=== PATIENT | female | born 1935 | race Caucasian/White ===

== ENCOUNTER → 2016-04-28 | Outpatient (CLI) | payer BC ==
[~2016-04-28] MED LIST: ARM1 PO; ASPEC81 PO; CRS10 PO; FRS/40 PO; INSDGI SC; METO1TAB69 PO; MULT-506 PO; NVLGI SQ; SPIR50TA2 PO
[2016-04-28 09:32] LABS: BASO % 0.4 %; BASO ABS # 0.03 K/uL (0-0.2); COMPLETE YES; EOS % 2.3 %; HEMATOCRIT 40.1 % (37-47); IG% 0.1 %; LYMPH % 36.2 %; LYMPH ABS # 2.62 K/uL (1.2-3.4); MEAN CELL VOLUME 85.9 fL (80-100); MEAN CORPUSCULAR HEMOGLOBIN 28.9 pg (25-34); MEAN CORPUSCULAR HGB CONC 33.7 g/dl (32-36); MEAN PLATELET VOLUME 11.1 fL (7.4-10.4); MONO % 9.1 %; NEUT % 51.9 %; PLATELET COUNT 172 K/uL (130-400); RED BLOOD COUNT 4.67 M/uL (4.2-5.4); WHITE BLOOD COUNT 7.24 K/uL (4.8-10.8)
[2016-04-28 09:53] LABS: ESTIMATED AVERAGE GLUCOSE 194 mg/dl; HA1C FLAG Normal (Normal)
[2016-04-28 10:05] LABS: ALT/SGPT 22 U/L (12-78); BLOOD UREA NITROGEN 16 mg/dl (7-18); BUN/CREATININE RATIO 20.1 (10-20); CALCIUM 9.2 mg/dl (8.5-10.1); CARBON DIOXIDE 27 mmol/L (21-32); CHLORIDE 105 mmol/L (98-107); CHOLESTEROL 124 mg/dl (0-200); CREATININE 0.77 mg/dl (0.60-1.20); GLUCOSE 155 mg/dl (70-99); SODIUM 142 mmol/L (136-145); TRIGLYCERIDES 133 mg/dl (0-150); VERY LOW DENSITY LIPOPROT CALC 27 mg/dl
[2016-04-28 10:08] LABS: ALKALINE PHOSPHATASE 124 U/L (45-117); AST/SGOT 24 U/L (15-37); CHOLESTEROL/HDL RATIO 2.9; HDL CHOLESTEROL 43 mg/dl; LDL CHOLESTEROL CALCULATED 54 mg/dl
[2016-04-28 16:39] LABS: RATIO 18.5 mcg/mg (0-30.0)
== END | disposition home or self-care (01) ==
LOC: C.LAB1850 08:37
PROVIDERS: ATTEND Nurse Practitioner Family
DX: I10 Essential (primary) hypertension (principal); E10.9 Type 1 diabetes mellitus without complications; E78.00 Pure hypercholesterolemia, unspecified

== ENCOUNTER → 2016-10-23 | Outpatient (CLI) | payer BC ==
[2016-10-23 09:35] LABS: BASO % 0.4 %; BASO ABS # 0.03 K/uL (0-0.2); COMPLETE YES; EOS % 2.6 %; HEMATOCRIT 37.6 % (37-47); IG% 0.1 %; LYMPH % 30.2 %; LYMPH ABS # 2.35 K/uL (1.2-3.4); MEAN CELL VOLUME 80.3 fL (80-100); MEAN CORPUSCULAR HEMOGLOBIN 26.1 pg (25-34); MEAN CORPUSCULAR HGB CONC 32.4 g/dl (32-36); MEAN PLATELET VOLUME 10.3 fL (7.4-10.4); MONO % 9.3 %; NEUT % 57.4 %; PLATELET COUNT 196 K/uL (130-400); RED BLOOD COUNT 4.68 M/uL (4.2-5.4); WHITE BLOOD COUNT 7.78 K/uL (4.8-10.8)
[2016-10-23 10:08] LABS: ALT/SGPT 20 U/L (12-78); BLOOD UREA NITROGEN 19 mg/dl (7-18); BUN/CREATININE RATIO 21.2 (10-20); CALCIUM 9.9 mg/dl (8.5-10.1); CARBON DIOXIDE 26 mmol/L (21-32); CHLORIDE 106 mmol/L (98-107); CHOLESTEROL 120 mg/dl (0-200); CREATININE 0.89 mg/dl (0.60-1.20); GLUCOSE 82 mg/dl (70-99); POTASSIUM 3.5 mmol/L (3.5-5.1); SODIUM 140 mmol/L (136-145); TRIGLYCERIDES 111 mg/dl (0-150); VERY LOW DENSITY LIPOPROT CALC 22 mg/dl
[2016-10-23 10:12] LABS: ALKALINE PHOSPHATASE 124 U/L (45-117); AST/SGOT 20 U/L (15-37); CHOLESTEROL/HDL RATIO 2.9; HDL CHOLESTEROL 42 mg/dl; LDL CHOLESTEROL CALCULATED 56 mg/dl
[2016-10-23 10:24] LABS: ESTIMATED AVERAGE GLUCOSE 186 mg/dl; HA1C FLAG Normal (Normal)
== END | disposition home or self-care (01) ==
LOC: C.LAB1850 08:35
PROVIDERS: ATTEND Nurse Practitioner Family
DX: I10 Essential (primary) hypertension (principal); E10.9 Type 1 diabetes mellitus without complications; E78.00 Pure hypercholesterolemia, unspecified; I65.29 Occlusion and stenosis of unspecified carotid artery

== ENCOUNTER → 2016-12-10 | Outpatient (CLI) | payer BC ==
--- NOTE | 2016-12-11 13:58 | MAMMOGRAPHY REPORT ---
BILATERAL DIGITAL SCREENING MAMMOGRAM TOMOSYNTHESIS WITH CAD: 12/10/2016 CLINICAL HISTORY: Asymptomatic. Personal history of breast cancer. TECHNIQUE: Breast tomosynthesis in addition to standard 2D mammography was performed. Current study was also evaluated with a Computer Aided Detection (CAD) system. COMPARISON: Comparison is made to exams dated: 11/01/2015 mammogram, 02/21/2015 mammogram, 02/20/2014 m ammogram, 02/16/2013 mammogram, 02/16/2012 mammogram, and 02/11/2011 mammogram - [facility]. BREAST COMPOSITION: There are scattered areas of fibroglandular density in both breasts. FINDINGS: No suspicious masses, calcifications, or areas of architectural distortion are noted in ei ther breast. There has been no significant interval change compared to prior exams. Scattered bilater al benign-appearing calcifications are not significantly changed. There are stable postsurgical gonzales ges in the right breast from prior lumpectomy. IMPRESSION: ACR BI-RADS CATEGORY 2: BENIGN There is no mammographic evidence of malignancy. A 1 year screening mammogram is recommended. The pa tient will receive written notification of the results. Approximately 10% of breast cancers are not detected with mammography. A negative mammographic report should not delay biopsy if a clinically suggestive mass is present. Gloria Rivero M.D. /:12/10/2016 16:02:44 Utility Maintenance Worker: Radha BEVERLY(R)(M), [facility] letter sent: Normal 1/2 BI-RADS Code: ACR BI-RADS Category 2: Benign
== END | disposition home or self-care (01) ==
LOC: C.MAMM 10:32
PROVIDERS: ATTEND Nurse Practitioner Family
DX: Z12.31 Encounter for screening mammogram for malignant neoplasm of breast (principal); Z85.3 Personal history of malignant neoplasm of breast

== ENCOUNTER → 2017-01-22 | Outpatient (CLI) | payer BC ==
[~2017-01-22] MED LIST changes: +METO100T44 PO; -METO1TAB69 PO
[2017-01-22 14:20] VITALS: BP 111/62; PULSE 45; TEMP 36.7; O2SAT 94
[2017-01-22 15:02] VITALS: BP 104/62
--- NOTE | 2017-01-22 16:28 | Radiation Oncology Follow-Up ---
Radiation Oncology Follow-Up Date of Visit Jan 22, 2017. Reason For Visit Annual follow-up Radiation Completion Date finished 06-06-2010, using accelerated partial breast treatment Diagnosis (1) Breast cancer Status: Resolved Onset Date: 02/06/2010 Permanent Comment: Abnormal right breast mammogram Status post core needle biopsy revealing ductal carcinoma Status post right partial mastectomy and sentinel lymph node biopsy Stage [id number] SG receptor was positive progesterone receptor positive and HER-2/jeremie negative Status post completion of radiation therapy utilizing accelerated partial breast treatment completed 06/06/2010 received 3850 cGy Last Edited By: Janet Puente on Jan 10, 2015 16:34 Interim History She has noticed no changes to her breast. She has an area of fibrous tissue in the upper outer portion which is unchanged. There is mild tenderness at times in this area. She's had no changes of the overlying skin is noted no masses of the axilla. She denies any swelling of her arm. She is up-to-date on mammography. She had a mammogram 12/10/2016. There was no mammographic evidence of malignancy. A one-year screening mammogram was recommended. She complained to nursing that she has been having difficulty with lightheadedness. Vital signs were taken and she was noted to have a slow pulse at 44 bpm blood pressure was taken standing sitting and lying. She describes her lightheadedness is a wave that will come over her. She has not lost consciousness. She is diabetic. She has checked her blood sugars and this is not related to her blood sugar. She is also been evaluated for vertigo. Allergies Coded Allergies: Penicillins (Verified Allergy, Mild, RASH, 12/31/11) VITOR Inhibitors (Unverified Allergy, Unknown, HIVES, 12/31/11) Home Medications Scheduled Aspirin Enteric Coated (Ecotrin Or Generic *), 81 MG PO DAILY Furosemide (Lasix), 40 MG PO DAILY Insulin Aspart (Novolog), 30 UNITS SQ TID Insulin Glargine (Lantus), 32 UNITS SC BID Metoprolol Succ (Toprol Xl) (Toprol-Xl ), 100 MG PO QPM Multivitamin (Multivitamin), 1 TAB PO DAILY Rosuvastatin Calcium (Crestor *), 10 MG PO DAILY Spironolactone (Aldactone), 50 MG PO DAILY Review of Systems Gastrointestinal: GI Comments: had rectal bleeding 6 months ago, none since Oral: Symptoms: No Problems Respiratory: Symptoms: Dry Cough, SOB With Exertion Urinary: Symptoms: Incontinence, Nocturia Comments: " drips all the time , occ nocturia " Skin: Symptoms: No Problems Breast: Right Upper Arm Measurement: 35.0 Right Mid Arm Measurement: 28.0 Right Wrist Measurement: 18.0 Left Upper Arm Measurement: 35.5 Left Mid Arm Measurement: 27.0 Left Wrist Measurement: 18.5 Arm Dominence: Right Patient Cosmetic Evaluation: Excellent Staff Cosmetic Evalaluation: Excellent Physical Exam Vital Signs Date Time Temp Pulse Resp B/P (MAP) Pulse Ox O2 Delivery O2 Flow Rate FiO2 01/22/17 15:02 104/62 01/22/17 14:20 36.7 45 16 111/62 94 Pain: Side: Bilateral Patient Pain Scale: 0 - 10 Initial Pain Intensity: 0.0 Fatigue: None General Appearance: no apparent distress Eyes: normal inspection, EOMI ENT: normal ENT inspection, hearing grossly normal Neck: no adenopathy Respiratory/Chest: lungs clear, no respiratory distress, no accessory muscle use Breast: Breast examination reveals well-healed incisions of the right breast. There is fibrous tissue in the upper outer quadrant. There is slight tenderness. There is no erythema or edema. There are no skin retractions or nipple changes. Using the [place] score cosmesis she has a good outcome. Left breast showed no masses or tenderness no axillary adenopathy. Cardiovascular: no gallop, + bradycardia Abdomen: non tender, soft Extremities: no pedal edema Neurologic/Psychiatric: no motor/sensory deficits, alert, normal mood/affect Skin: warm/dry Additional Exam Notes: Blood pressure standing was 104/60. Blood pressure lying was 117/65. Laboratory Studies Test 10/23/16 08:45 White Blood Count 7.78 K/uL (4.8-10.8) Red Blood Count 4.68 M/uL (4.2-5.4) Hemoglobin 12.2 g/dL (12.0-16.0) Hematocrit 37.6 % (37-47) Mean Corpuscular Volume 80.3 fL (80-100) Mean Corpuscular Hemoglobin 26.1 pg (25-34) Mean Corpuscular Hemoglobin Concent 32.4 g/dl (32-36) Platelet Count 196 K/uL (130-400) Mean Platelet Volume 10.3 fL (7.4-10.4) Neutrophils (%) (Auto) 57.4 % Lymphocytes (%) (Auto) 30.2 % Monocytes (%) (Auto) 9.3 % Eosinophils (%) (Auto) 2.6 % Basophils (%) (Auto) 0.4 % Neutrophils # (Auto) 4.47 K/uL (1.4-6.5) Lymphocytes # (Auto) 2.35 K/uL (1.2-3.4) Monocytes # (Auto) 0.72 K/uL (0.11-0.59) Eosinophils # (Auto) 0.20 K/uL (0-0.5) Basophils # (Auto) 0.03 K/uL (0-0.2) RDW Standard Deviation 41.8 fL (36.4-46.3) RDW Coefficient of Variation 14.4 % (11.5-14.5) Immature Granulocyte % (Auto) 0.1 % Immature Granulocyte # (Auto) 0.01 K/uL (0.00-0.02) Urine Random Creatinine 130.0 mg/dl Urine Random Microalbumin 11.7 mg/L Urine Microalbumin/Creatinine Ratio 9.0 mcg/mg (0-30.0) Sodium Level 140 mmol/L (136-145) Potassium Level 3.5 mmol/L (3.5-5.1) Chloride Level 106 mmol/L (98-107) Carbon Dioxide Level 26 mmol/L (21-32) Anion Gap 8.0 mmol/L (3-11) Blood Urea Nitrogen 19 mg/dl (7-18) Creatinine 0.89 mg/dl (0.60-1.20) Estimated GFR () 70.0 Estimated GFR (Non- 60.4 BUN/Creatinine Ratio 21.2 (10-20) Random Glucose 82 mg/dl (70-99) Estimated Average Glucose 186 mg/dl Hemoglobin A1c 8.1 % (4.5-5.6) Calcium Level 9.9 mg/dl (8.5-10.1) Total Bilirubin 0.6 mg/dl (0.2-1) Aspartate Amino Transferase (AST) 20 U/L (15-37) Alanine Aminotransferase (ALT) 20 U/L (12-78) Alkaline Phosphatase 124 U/L (45-117) Total Protein 7.2 gm/dl (6.4-8.2) Albumin 3.6 gm/dl (3.4-5.0) Globulin 3.6 gm/dl (2.5-4.0) Albumin/Globulin Ratio 1.0 (0.9-2) Triglycerides Level 111 mg/dl (0-150) Cholesterol Level 120 mg/dl (0-200) HDL Cholesterol 42 mg/dl LDL Cholesterol, Calculated 56 mg/dl VLDL Cholesterol, Calculated 22 mg/dl Cholesterol/HDL Ratio 2.9 Additional Studies Patient: LUDWIG JULES [facility] Rec: [id number] Address1: [address] [place] [address] [id number] Date: 1935 Sex: F Ref Phy: Silviano Richards III, CRNP Att Phy: Silviano Richards III, CRNP Debbie Phy: Silviano Richards III, CRNP Inter Phy: Gloria Rivero MD [facility] Zip: [place] [address] SC: C.MAMM Report #: [id number] Clinical Engineer: GERARDO Diagnosis: ASYMPTOMATIC, HX OF BREAST CA Service Date: 12/10/16 MNE: [id number] Ordering Dr: Silviano Richards III, CRNP CC: Silviano Richards III, CRNP CONF: DICTATED BY: Gloria Rivero MD MAMMOGRAPHY REPORT BILATERAL DIGITAL SCREENING MAMMOGRAM TOMOSYNTHESIS WITH CAD: 12/10/2016 CLINICAL HISTORY: Asymptomatic. Personal history of breast cancer. TECHNIQUE: Breast tomosynthesis in addition to standard 2D mammography was performed. Current study was also evaluated with a Computer Aided Detection (CAD ) system. COMPARISON: Comparison is made to exams dated: 11/01/2015 mammogram, 02/21/2015 mammogram, 02/20/2014 mammogram, 02/16/2013 mammogram, 02/16/2012 mammogram, and 02/11/2011 mammogram - [facility]. BREAST COMPOSITION: There are scattered areas of fibroglandular density in both breasts. FINDINGS: No suspicious masses, calcifications, or areas of architectural distortion are noted in either breast. There has been no significant interval change compared to prior exams. Scattered bilateral benign-appearing calcifications are not significantly changed. There are stable postsurgical changes in the right breast from prior lumpectomy. IMPRESSION: ACR BI-RADS CATEGORY 2: BENIGN There is no mammographic evidence of malignancy. A 1 year screening mammogram is recommended. The patient will receive written notification of the results. Approximately 10% of breast cancers are not detected with mammography. A negative mammographic report should not delay biopsy if a clinically suggestive mass is present. Gloria Rivero M.D. ah/:12/10/2016 16:02:44 Director Home Health: Radha GARCES)(Clif), [facility] letter sent: Normal 1/2 BI-RADS Code: ACR BI-RADS Category 2: Benign Dictated by: Gloria Rivero MD Assessment & Plan Plan: Continue annual mammography. Continue regular follow-up with her primary care physician. We did call her primary care physician's office to set up an appointment for an evaluation of the bradycardia. They were able to see her this afternoon. We asked her to return to our office in 1 year. She may call if she has any questions or concerns in the interim. Total Time In Follow-Up I spent 20 minutes speaking to the patient and performing examination. I spent 15 minutes reviewing information in completing this note. Copy To Silviano Richards III, CRNP; Alexx Bean D.O.
== END | disposition home or self-care (01) ==
LOC: C.ONC 14:10
PROVIDERS: ATTEND Physician Assistant Medical
DX: Z08 Encounter for follow-up examination after completed treatment for malignant neoplasm (principal); Z92.3 Personal history of irradiation; Z85.3 Personal history of malignant neoplasm of breast

== ENCOUNTER → 2017-04-29 | Outpatient (CLI) | payer BC ==
[~2017-04-29] MED LIST changes: -ARM1 PO
[2017-04-29 12:23] LABS: HEMOGLOBIN A1C 9.3 % (4.5-5.6)
[2017-04-29 12:35] LABS: ALBUMIN 3.4 gm/dl (3.4-5.0); ALT/SGPT 21 U/L (12-78); AST/SGOT 27 U/L (15-37); BLOOD UREA NITROGEN 18 mg/dl (7-18); CALCIUM 9.6 mg/dl (8.5-10.1); CARBON DIOXIDE 31 mmol/L (21-32); CREATININE 0.87 mg/dl (0.60-1.20); GLUCOSE 215 mg/dl (70-99); SODIUM 136 mmol/L (136-145)
[2017-04-29 12:36] LABS: ALKALINE PHOSPHATASE 110 U/L (45-117); CHOLESTEROL 126 mg/dl (0-200); LDL CHOLESTEROL CALCULATED 47 mg/dl; TOTAL PROTEIN 7.2 gm/dl (6.4-8.2)
== END | disposition home or self-care (01) ==
LOC: C.LAB1850 09:52
PROVIDERS: ATTEND Nurse Practitioner Family
DX: I10 Essential (primary) hypertension (principal); E10.9 Type 1 diabetes mellitus without complications; E78.00 Pure hypercholesterolemia, unspecified; E66.9 Obesity, unspecified; I65.29 Occlusion and stenosis of unspecified carotid artery

== ENCOUNTER → 2017-08-03 | Outpatient (CLI) | payer BC ==
[2017-08-03 13:41] LABS: HEMOGLOBIN A1C 9.4 % (4.5-5.6)
[2017-08-03 13:43] LABS: BLOOD UREA NITROGEN 12 mg/dl (7-18); CALCIUM 9.4 mg/dl (8.5-10.1); CARBON DIOXIDE 26 mmol/L (21-32); CREATININE 0.88 mg/dl (0.60-1.20); GLUCOSE 206 mg/dl (70-99); POTASSIUM 3.8 mmol/L (3.5-5.1); SODIUM 134 mmol/L (136-145)
== END | disposition home or self-care (01) ==
LOC: C.LAB1850 11:28
PROVIDERS: ATTEND Nurse Practitioner Family
DX: E10.9 Type 1 diabetes mellitus without complications (principal)

== ENCOUNTER → 2017-12-11 | Outpatient (CLI) | payer BC ==
--- NOTE | 2017-12-14 13:56 | MAMMOGRAPHY REPORT ---
BILATERAL DIGITAL SCREENING MAMMOGRAM TOMOSYNTHESIS WITH CAD: 12/11/2017 CLINICAL HISTORY: Routine screening. Patient has no complaints. TECHNIQUE: Breast tomosynthesis in addition to standard 2D mammography was performed. Current study w as also evaluated with a Computer Aided Detection (CAD) system. COMPARISON: Comparison is made to exams dated: 12/10/2016 mammogram, 11/01/2015 mammogram, 02/21/2015 m ammogram, 02/20/2014 mammogram, 02/16/2013 mammogram, and 02/16/2012 mammogram - [facility]. BREAST COMPOSITION: There are scattered areas of fibroglandular density in both breasts. FINDINGS: No suspicious masses, calcifications, or areas of architectural distortion are noted in either breast . There has been no significant interval change compared to prior exams. Scattered bilateral benign- appearing calcifications are not significantly changed. There are stable postsurgical changes in the right breast from prior lumpectomy. IMPRESSION: ACR BI-RADS CATEGORY 2: BENIGN There is no mammographic evidence of malignancy. A 1 year screening mammogram is recommended.( 019) The patient will receive written notification of the results. Some breast cancers are not detected with mammography. A negative mammographic report should not sloan y biopsy if a clinically suggestive mass is present. Gloria Rivero M.D. /:12/12/2017 10:39:25 Flare Stitcher: RT Steffen(Moshe)(M), [facility] letter sent: Normal 1/2 BI-RADS Code: ACR BI-RADS Category 2: Benign
== END | disposition home or self-care (01) ==
LOC: C.MAMM 10:45
PROVIDERS: ATTEND Nurse Practitioner Family
DX: Z12.31 Encounter for screening mammogram for malignant neoplasm of breast (principal)

== ENCOUNTER 2018-04-21 19:45 | Inpatient (IN) ==
[2018-04-21] MEDS ORDERED: fentaNYL citrate 100 MCG/2 ML VIAL IV ONE (21:08)
[2018-04-21] MEDS ORDERED: fentaNYL citrate 100 MCG/2 ML VIAL IV PRN (21:08)
[2018-04-21 21:26] LABS: Hematocrit (blood only) 40.7 % (37-47); Hemoglobin 13.4 g/dL (12.0-16.0); Mean Corpuscular Hgb Conc 32.9 g/dL (32-36); Mean Corpuscular Volume 80.9 fL (80-100); Platelet Count 176 K/uL (130-400); RDW Coefficient of Variation 19.6 % (11.5-14.5); Red Blood Count 5.03 M/uL (4.2-5.4); White Blood Count 27.52 K/uL (4.8-10.8)
[2018-04-21 21:32] LABS: iSTAT Hemoglobin 13.6 g/dl (12.0-16.0); iSTAT Ionized Calcium 1.07 mmol/l (1.12-1.32)
--- NOTE | 2018-04-21 21:32 | XRay Report ---
XR chest 1V portable HISTORY: 83 years-old Female fever acute fever COMPARISON: Chest radiograph 03/18/2018 TECHNIQUE: Portable AP view of the chest FINDINGS: Cardiac silhouette is enlarged, unchanged. Left subclavian pacer is again noted within the midportion of the catheter looping superiorly in the region of the left internal jugular vein. Distal portion o f the catheter is seen within the region of the mid SVC. There is no pneumothorax. Blunting of the costophrenic angles redemonstrated suggesting scarring/atel ectasis with trace effusions not excluded. Mild chronic interstitial coarsening without overt pulmona ry edema. Degenerative changes of the shoulders and spine. Surgical clips project over the lateral ri ght breast. IMPRESSION: Cardiomegaly without acute process. The above report was generated using voice recognition software. It may contain grammatical, syntax o r spelling errors. Electronically signed by: Gaston Montejo M.D. 04/21/2018 9:31 PM
[2018-04-21 21:40] LABS: INR 1.3 (0.9-1.1); Partial Thromboplastin Ratio 1.1; Partial Thromboplastin Time 29.1 Seconds (21.0-31.0); Prothrombin Time 13.2 Seconds (9.0-12.0)
[2018-04-21 21:43] LABS: Basophils # (auto) 0.03 K/uL (0-0.2); Basophils % (auto) 0.1 %; Immature Granulocytes # (auto) 0.16 K/uL (0.00-0.02); Immature Granulocytes % (auto) 0.6 %; Lymphocytes # (auto) 1.97 K/uL (1.2-3.4); Lymphocytes % (auto) 7.2 %; Monocytes # (auto) 0.94 K/uL (0.11-0.59); Monocytes % (auto) 3.4 %; Neutrophils # (auto) 24.42 K/uL (1.4-6.5); Neutrophils % (auto) 88.7 %
[2018-04-21 21:46] LABS: Albumin Level 1.9 gm/dl (3.4-5.0); BUN Creatinine Ratio 17.7 (10-20); Bilirubin Direct 0.5 mg/dl (0-0.2); Calcium 8.4 mg/dl (8.5-10.1); Est GFR (African American) 84.8; Est GFR (Non-African American) 73.2; Magnesium 1.5 mg/dl (1.8-2.4); Potassium 2.9 mmol/L (3.5-5.1)
[2018-04-21] MEDS ORDERED: DAPTOmycin 500 MG in SYRINGE 0 ML IV STA (21:49)
[2018-04-21] MEDS ORDERED: AZTREONAM 2,000 MG in DEXTROSE 5% 100 ML IV STA (21:49)
--- NOTE | 2018-04-21 21:52 | CT Scan Report ---
ABDOMEN AND PELVIS CT WITHOUT CONTRAST CT DOSE: 609.98 mGy.cm HISTORY: Acute generalized abdominal pain with fever. History of metastatic colon cancer. abdominal pain, vomiting, fevers, meta colon ca TECHNIQUE: Multiaxial CT images of the abdomen and pelvis were performed without contrast. A dose lo wering technique was utilized adhering to the principles of ALARA. COMPARISON STUDY: CT abdomen and pelvis 03/30/2018 and 01/21/2018, PET CT 02/08/2018 FINDINGS: Partially imaged groundglass and consolidative opacities of the right lower lobe are noted, suspicio us for pneumonitis. Trace bilateral pleural effusions. Linear segmental consolidative and groundglass opacities of the left lung base suggest atelectasis/scarring. No pneumatosis or pneumoperitoneum. Im aged inferior cardiac chambers are mildly enlarged. Coarse mitral and aortic annular calcifications w ith coronary arterial calcifications are noted. No pericardial effusion. Prior cholecystectomy. Innumerable hepatic metastatic lesions are redemonstrated, sensitivity of whic h is limited without the use of IV contrast. A dominant mass of the inferior right hepatic lobe measu res 7.2 cm. Trace abdominopelvic ascites, new from comparison. Spleen and right adrenal gland are unr emarkable. Mild thickening of the left adrenal gland. Prior cholecystectomy. Moderate to severe gener alized pancreatic atrophy. Mild nonspecific bilateral perinephric stranding. No ureteral calculi or obstructive uropathy. Prior hysterectomy. Extensive calcification of the aorta without aneurysm. Scattered mildly prominent retro peritoneal lymph nodes again seen. Fluid-filled distal esophagus. Mild wall thickening of the distal esophagus with small sliding-type hiatal hernia. No small bowel obstruction. Colonic diverticulosis. Moderate wall thickening throughout the sigmoid colon with pericolonic inflammation. Additionally, th ere is thickening of the adjacent peritoneum with a fluid and air-filled tract extending towards the vaginal cuff (for example best seen on images 329 through 351 of series 3). Air and debris noted with in the vaginal canal. No drainable fluid collection. Large cecal mass with ill-defined margins adjace nt lul and peritoneal metastasis redemonstrated. Fluid-filled terminal ileum with mild wall thicken ing. Scattered areas of omental/peritoneal nodularity are seen, for example image 161 series 3 about the lateral left midabdomen equivocal for metastasis. Lul metastasis on image 109 series 3 measures 3.5 x 2.5 cm, unchanged Mild generalized body wall edema. Multilevel spondylitic spurring with facet arthrosis and discogenic degeneration throughout the spine. No definite suspicious lytic or blastic bony lesions to suggest o sseous metastasis. Indeterminate ill-defined 9 mm lucent lesion of the posterior aspects T11 vertebra l body is unchanged from comparison. IMPRESSION: 1. Large ill-defined soft tissue mass of the cecum compatible with patient's known primary colorectal carcinoma redemonstrated with adjacent lul and peritoneal metastasis. 2. Diffuse hepatic metastasis with trace abdominopelvic ascites. 3. Colonic diverticulosis with sigmoid wall thickening and adjacent inflammation is compatible with a cute sigmoid diverticulitis. Air and fluid-filled tract extending towards the vagina suggests associa jorge colovaginal fistula with air and debris within the vaginal canal. 4. No bowel obstruction. 5. Trace bilateral pleural effusions with opacities of the right lung base suggestive of pneumonitis. 6. Additional findings as above. Electronically signed by: Gaston Montejo M.D. 04/21/2018 9:50 PM
[2018-04-21] MEDS ORDERED: SODIUM CHLORIDE 0.9% 1000ML 1,000 ML IV ONE (21:57)
[2018-04-21 22:06] LABS: Bilirubin,Total 1.1 mg/dl (0.2-1); Total Protein 5.9 gm/dl (6.4-8.2); Troponin I 1.56 ng/ml (0-0.045)
[2018-04-21] MEDS ORDERED: ACETAMINOPHEN 500 MG TAB PO STA (22:22)
[2018-04-21] MEDS ORDERED: AMIODARONE IV BOLUS / DRIP IV STA (22:25)
[2018-04-21] MEDS ORDERED: AMIODARONE / D5W 150 MG/100 ML BAG IV STA (22:25)
[2018-04-21] MEDS ORDERED: AMIODARONE / D5W 360 MG/200 ML BAG IV SCH (22:30)
--- NOTE | 2018-04-21 23:45 | Emergency Department Note ---
Entered by Katie Gupta acting as a scribe for Ian Zamudio MD ED Provider Note Name: Brittney Thurman Age: 83 Arrives Via: EMS Informant: Patient, patient's family CC: Abdominal pain HPI: The patient is an 83 year old female who presents to the Emergency Room with complaints of a persistent abdominal pain that began a few days ago. The patient reports that the pain is located on her right lower quadrant. She denies any chest pain, shortness of breath, dizziness, lightheadedness or dysuria, but notes she has had mucus-like bowel movements. Per family, the patient had a port placed a month ago to receive chemotherapy for her history of stage 4 colon cancer. The family states that the patient's cancer has metastasized to her liver and that she has only received one mass chemotherapy session. The patient notes that she was unable to eat following the treatment and was at this hospital receiving nutrition via IV. She reports that she has been in [facility] since being discharged. Per family, the patient has a history of a-fib as well as a cholecystectomy but deny a history of kidney stones or kidney failure. The patient sates that she was given morphine prior to arrival and denies any episode of fever before today. Patient received Morphine PO prior to arrival. Movement makes worse. Rest/not moving makes better. ROS: See above HPI for pertinent positives & negatives. A total of 10 systems reviewed and were otherwise negative. Past Medical History: See below. Past Surgical History: See below. Family History: See below. Social History: See below. Home Medications: See below. Allergies: Penicillins, VITOR inhibitors. Physical: Vitals: BP: 117/67 P: 104 R: 20 T: 101.7 O2: 96 Exam: GENERAL: Patient is uncomfortable appearing, moderate distress, chronically unwell appearing. EYES: No scleral icterus, unremarkable pupils. ENT: Mucous membranes moist, no nasal congestion. NECK: No masses appreciated, no meningismus, trachea is midline. RESPIRATORY: No dyspnea. Clear to auscultation and equal bilaterally. No wheeze , no rhonchi. CARDIOVASCULAR: Tachycardic. No murmurs, rubs, gallops appreciated. GASTROINTESTINAL: Abdomen soft, diffuse abdominal tenderness to palpation, worse over the right lower quadrant, no peritonitis. Bowel sounds positive. No masses appreciated. BACK: No midline tenderness, no CVA tenderness EXTREMITIES: Normal motion all extremities, no cyanosis, no edema. NEUROLOGIC: Alert and oriented, no acute motor or sensory deficits, no focal weakness, cranial nerves grossly intact. SKIN: No rash, no jaundice, no diaphoresis. ED Course: Prior Medical Record, Triage/Nursing Notes, Medications, Allergies reviewed by Me Vital Signs: reviewed and remarkable for febrile. Labs: Reviewed and remarkable for elevated wbc, low K, low mag, low albumen, + trop Interventions: Port accessed, 1 L NSS bolus, Fentanyl 25mcg IV, Aztreonam 2G IV , Daptomycin 500mg IV, Amiodarone 150mg & gtt. Imaging: See below. EKG: See below. Reassessments/Times: 2154: The patient states her abdominal pain is better as long as she doesn't move. 2237: I had an extensive discussion with patient and the patient's family and they all agreed on DNR, however, they do want aggressive antibiotics. Consults: 2249: I reviewed the patient's case with Dr. Gil - [facility] Hospitalist. He will evaluate the patient for further management. Blood pressure: Normal, no referral indicated Disposition: See below. Differential diagnosis includes: diverticulitis, appendicitis,perforated viscus , pancreatitis, cholecystitis, UTI, sepsis, amongst other pathologies. Medical Decision Making: Pleasant 83 yr old female with low abdominal pain, fevers and not feeling well. Associated mucous diarrhea and admits 2 weeks of mucous draining from vagina. Pain controlled on arrival. IV fluids initiated. LA and BP OK thus I do not feel this is septic shock, however with infection, wbc 27 she clearly is septic. Will hold on full 30ml/kg IV fluids to avoid putting her in to respiratory failure. 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 She is recent chemo patient, very malnurished and has stage 4 metastatic colon CA. She was treated aggressively with IV fluids, ABx. Noted to be going in to runs of V-Tach of a few seconds that occurred several times. Likely septic causing cardiac instability and thus will start Amio. She tolerated this well. Suspect Trop is more due to sepsis though could have something to do with her vtach as well. We had several very long discussion with myself, family and patient. They are all in agreeing that patient does not want surgery, does not want intubation , and would not want CPR. She was watched very closely over the time she was in ED with many repeat evaluations. BP remained stable thoughout and pain was kept under control with fentanyl. Impression: See below. Critical Care Time: I have personally spent greater than 90 minutes of critical care time in the direct management of this patient. Sepsis with WBC 27 requiring aggressive management, cardiac instability with V-Tach requiring Amiodarone, and extensive discussions on DNR status. This was a life/limb threatening event. This includes time spent evaluating patient, direct bedside care, chart review, placing orders, interpretation of diagnostic studies, discussion with consultants, patient, and family members, as well as other required patient management activities. This 90 minutes is in excess of all separately billable procedures. Ian Zamudio MD The scribe's documentation has been prepared under my direction and personally reviewed by me in its entirety. I confirm that the note above accurately reflects all work, treatment, procedures, and medical decision making performed by me. Impression & Plan Diverticulitis large intestine, Fistula of vagina to large intestine, Sepsis, V tach, Elevated troponin Past Med/Surg History Medical History History of breast cancer (Chronic) RIGHT. (+)RADIATION (2009) Hyperlipidemia (Chronic) Diabetes mellitus (Chronic) TYPE 2 IDDM HTN (hypertension) (Chronic) Cancer H/O BREAST CANCER 2010 CURRENT COLON CANCER WITH METS TO LIVER. Mitral regurgitation Mitral stenosis Chronic diastolic CHF (congestive heart failure) Esophageal dysmotility Aortic stenosis Paroxysmal atrial fibrillation Edema Colon cancer metastasized to liver Surgical History Hx of hysterectomy (Chronic) MAGALYS WITH BSO History of dilation and curettage (Chronic) Hx of cholecystectomy (Chronic) History of lumpectomy of right breast (Chronic) History of cataract surgery BILATERAL Encounter for care related to vascular access port access port placed 03/18/2018. fentanyl/propofol without issue. Family History Aunt Colon cancer Other No significant family history Social History Current Living Situation: Spouse Feels Safe at Home: Yes Smoking Status: Unknown if ever smoked Hx Alcohol Use: No Hx Substance Use: No Beliefs That Will Affect Care: None Preferred Language: Romansh Results & Data Vital Signs Vital Signs - 24 hr 04/21/18 19:43 04/21/18 20:57 04/21/18 21:00 Temperature 38.7 C H Temperature Source Rectal Sepsis Recent Fever Within 48 Hours Yes Sepsis Action Taken by Nursing No Action Required Pulse Rate 104 H Pulse Rate [Apical] 107 H 105 H Pulse Rhythm [Apical] Pulse Strength [Apical] Respiratory Rate 20 18 18 Respiratory Effort / Characteristics Non-Labored Spontaneous Non-Labored Spontaneous Non-Labored Spontaneous Respiratory Depth Normal Normal Normal Respiratory Pattern Regular Regular Regular Blood Pressure 117/67 Blood Pressure [Left Arm] 129/71 135/75 Blood Pressure Mean 83 Blood Pressure Mean [Left Arm] 90 95 Blood Pressure Position Lying Blood Pressure Position [Left Arm] Lying Pulse Oximetry 96 95 93 Oxygen Delivery Method Room Air Room Air Room Air Oxygen Flow Rate 04/21/18 21:15 04/21/18 21:30 04/21/18 22:00 Temperature Temperature Source Sepsis Recent Fever Within 48 Hours Sepsis Action Taken by Nursing Pulse Rate Pulse Rate [Apical] 116 H 109 H Pulse Rhythm [Apical] Pulse Strength [Apical] Respiratory Rate 18 18 Respiratory Effort / Characteristics Non-Labored Spontaneous Non-Labored Spontaneous Respiratory Depth Normal Normal Respiratory Pattern Regular Regular Blood Pressure Blood Pressure [Left Arm] 100/69 130/74 Blood Pressure Mean Blood Pressure Mean [Left Arm] 79 92 Blood Pressure Position Blood Pressure Position [Left Arm] Lying Lying Pulse Oximetry 94 94 87 L Oxygen Delivery Method Room Air Room Air Room Air Oxygen Flow Rate 0 04/21/18 22:29 Temperature Temperature Source Sepsis Recent Fever Within 48 Hours Sepsis Action Taken by Nursing Pulse Rate Pulse Rate [Apical] 99 H Pulse Rhythm [Apical] Regular Pulse Strength [Apical] Normal Respiratory Rate 16 Respiratory Effort / Characteristics Non-Labored Spontaneous Respiratory Depth Normal Respiratory Pattern Regular Blood Pressure Blood Pressure [Left Arm] 121/74 Blood Pressure Mean Blood Pressure Mean [Left Arm] 89 Blood Pressure Position Blood Pressure Position [Left Arm] Lying Pulse Oximetry 98 Oxygen Delivery Method Nasal Cannula Oxygen Flow Rate 2 Home Medications Current Medication List: was personally reviewed by me Laboratory Data Attestation: I reviewed the patient's lab results. Result diagrams: 04/21/18 21:00 04/21/18 21:00 Lab Results 01/06/0804/21/18 04/21/18 Range/Units 21:00 21:00 21:00 WBC 27.52 H (4.8-10.8) K/uL RBC 5.03 (4.2-5.4) M/uL Hgb 13.4 (12.0-16.0) g/dL POC Hgb (12.0-16.0) g/dl Hct 40.7 (37-47) % POC Hct (37-47) % MCV 80.9 (80-100) fL MCH 26.6 (25-34) pg MCHC 32.9 (32-36) g/dL RDW Std Deviation 54.0 H (36.4-46.3) fL RDW Coeff of Bryanna 19.6 H (11.5-14.5) % Plt Count 176 (130-400) K/uL MPV 10.0 (7.4-10.4) fL Immature Gran % (Auto) 0.6 % Neut % (Auto) 88.7 % Lymph % (Auto) 7.2 % [place] % (Auto) 3.4 % Eos % (Auto) 0.0 % Baso % (Auto) 0.1 % Immature Gran # (Auto) 0.16 H (0.00-0.02) K/uL Neut # (Auto) 24.42 H (1.4-6.5) K/uL Lymph # (Auto) 1.97 (1.2-3.4) K/uL [place] # (Auto) 0.94 H (0.11-0.59) K/uL Eos # (Auto) 0.00 (0-0.5) K/uL Baso # (Auto) 0.03 (0-0.2) K/uL PT 13.2 H (9.0-12.0) Seconds INR 1.3 H (0.9-1.1) APTT 29.1 (21.0-31.0) Seconds PTT Ratio 1.1 POC Sodium (135-144) mEq/L Sodium 135 L (136-145) mmol/L POC Potassium (3.3-5.0) mEq/L Potassium 2.9 L (3.5-5.1) mmol/L POC Chloride (101-112) mEq/L Chloride 97 L (98-107) mmol/L Carbon Dioxide 24 (21-32) mmol/L POC Total CO2 (24-31) mEq/l Anion Gap 14.0 H (3-11) POC Anion Gap (16-25) mmol/L POC BUN (7-18) mg/dl BUN 13 (7-18) mg/dl Creatinine 0.75 (0.6-1.2) mg/dl POC Creatinine (0.6-1.3) mg/dl Est Cr Clr Drug Dosing 61.0 ml/min Est GFR ( Amer) 84.8 Est GFR (Non-Af Amer) 73.2 BUN/Creatinine Ratio 17.7 (10-20) Glucose 238 H (70-99) mg/dl POC Glucose (other) (70-99) mg/dl POC Lactic Acid Nate (0.90-1.70) mmol/L Calcium 8.4 L (8.5-10.1) mg/dl POC Ioniz Calcium Giovanni (1.12-1.32) mmol/l Magnesium 1.5 L (1.8-2.4) mg/dl Total Bilirubin 1.1 H (0.2-1) mg/dl Direct Bilirubin 0.5 H (0-0.2) mg/dl AST 73 H (15-37) U/L ALT 46 (12-78) U/L Alkaline Phosphatase 253 H (45-117) U/L Troponin I 1.560 H* (0-0.045) ng/ml Total Protein 5.9 L (6.4-8.2) gm/dl Albumin 1.9 L (3.4-5.0) gm/dl Lipase 40 L (73-393) U/L TSH 2.300 (0.300-4.500) uIu/ml 04/21/18 04/21/18 Range/Units 21:15 21:15 WBC (4.8-10.8) K/uL RBC (4.2-5.4) M/uL Hgb (12.0-16.0) g/dL POC Hgb 13.6 (12.0-16.0) g/dl Hct (37-47) % POC Hct 40 (37-47) % MCV (80-100) fL MCH (25-34) pg MCHC (32-36) g/dL RDW Std Deviation (36.4-46.3) fL RDW Coeff of Bryanna (11.5-14.5) % Plt Count (130-400) K/uL MPV (7.4-10.4) fL Immature Gran % (Auto) % Neut % (Auto) % Lymph % (Auto) % [place] % (Auto) % Eos % (Auto) % Baso % (Auto) % Immature Gran # (Auto) (0.00-0.02) K/uL Neut # (Auto) (1.4-6.5) K/uL Lymph # (Auto) (1.2-3.4) K/uL [place] # (Auto) (0.11-0.59) K/uL Eos # (Auto) (0-0.5) K/uL Baso # (Auto) (0-0.2) K/uL PT (9.0-12.0) Seconds INR (0.9-1.1) APTT (21.0-31.0) Seconds PTT Ratio POC Sodium 136 (135-144) mEq/L Sodium (136-145) mmol/L POC Potassium 2.9 L (3.3-5.0) mEq/L Potassium (3.5-5.1) mmol/L POC Chloride 95 L (101-112) mEq/L Chloride (98-107) mmol/L Carbon Dioxide (21-32) mmol/L POC Total CO2 27 (24-31) mEq/l Anion Gap (3-11) POC Anion Gap 19.0 (16-25) mmol/L POC BUN 13 (7-18) mg/dl BUN (7-18) mg/dl Creatinine (0.6-1.2) mg/dl POC Creatinine 0.6 (0.6-1.3) mg/dl Est Cr Clr Drug Dosing ml/min Est GFR ( Amer) Est GFR (Non-Af Amer) BUN/Creatinine Ratio (10-20) Glucose (70-99) mg/dl POC Glucose (other) 251 H (70-99) mg/dl POC Lactic Acid Nate 1.97 H (0.90-1.70) mmol/L Calcium (8.5-10.1) mg/dl POC Ioniz Calcium Giovanni 1.07 L (1.12-1.32) mmol/l Magnesium (1.8-2.4) mg/dl Total Bilirubin (0.2-1) mg/dl Direct Bilirubin (0-0.2) mg/dl AST (15-37) U/L ALT (12-78) U/L Alkaline Phosphatase (45-117) U/L Troponin I (0-0.045) ng/ml Total Protein (6.4-8.2) gm/dl Albumin (3.4-5.0) gm/dl Lipase (73-393) U/L TSH (0.300-4.500) uIu/ml Administered Medications Fentanyl Citrate (Fentanyl Citrate) 50 mcg IV Q15M PRN PRN Reason: Pain Stop: 05/05/18 21:07 Last Admin: 04/21/18 23:07 Dose: 50 mcg Amiodarone HCl/Dextrose (Nexterone / D5w) 360 mg in 200 mls @ 33.333 mls/hr IV .Q6H VERÓNICA Stop: 04/22/18 04:29 Last Admin: 04/21/18 22:59 Dose: 1 mg/min, 33.3 mls/hr Discontinued Medications Acetaminophen (Tylenol) 1,000 mg PO NOW STA Stop: 04/21/18 22:23 Last Admin: 04/21/18 22:45 Dose: 1,000 mg Amiodarone HCl (Cordarone Iv Bolus / Drip) 1 ea IV NOW STA; Protocol Stop: 04/21/18 22:26 Last Admin: 04/21/18 23:15 Dose: Not Given Fentanyl Citrate (Fentanyl Citrate) 25 mcg IV NOW ONE Stop: 04/21/18 21:09 Last Admin: 04/21/18 21:21 Dose: 25 mcg Aztreonam 2,000 mg/ Dextrose 120 mls @ 100 mls/hr IV NOW STA Stop: 04/21/18 23:00 Last Infusion: 04/21/18 22:41 Dose: 0 mls/hr Admin: 04/21/18 22:31 Dose: 100 mls/hr Daptomycin 500 mg/ Syringe 10 mls @ 5 mls/min IV NOW STA Stop: 04/21/18 21:50 Last Admin: 04/21/18 22:27 Dose: 5 mls/min Sodium Chloride (Nss 1000ml) 1,000 mls @ 999 mls/hr IV .Q1H1M ONE Stop: 04/21/18 22:57 Last Admin: 04/21/18 22:17 Dose: 999 mls/hr Amiodarone HCl/Dextrose (Nexterone / D5w) 150 mg in 100 mls @ 600 mls/hr IV ONE STA Stop: 04/21/18 22:34 Last Infusion: 04/21/18 22:56 Dose: 0 mls/hr Admin: 04/21/18 22:45 Dose: 600 mls/hr Imaging Data Radiologist's Impression: Radiology results as stated below per my review and the radiologist's interpretation: ABDOMEN AND PELVIS CT WITHOUT CONTRAST CT DOSE: 609.98 mGy.cm HISTORY: Acute generalized abdominal pain with fever. History of metastatic colon cancer. abdominal pain, vomiting, fevers, meta colon ca TECHNIQUE: Multiaxial CT images of the abdomen and pelvis were performed without contrast. A dose lowering technique was utilized adhering to the principles of ALARA. COMPARISON STUDY: CT abdomen and pelvis 03/30/2018 and 01/21/2018, PET CT 2017 FINDINGS: Partially imaged groundglass and consolidative opacities of the right lower lobe are noted, suspicious for pneumonitis. Trace bilateral pleural effusions. Linear segmental consolidative and groundglass opacities of the left lung base suggest atelectasis/scarring. No pneumatosis or pneumoperitoneum. Imaged inferior cardiac chambers are mildly enlarged. Coarse mitral and aortic annular calcifications with coronary arterial calcifications are noted. No pericardial effusion. Prior cholecystectomy. Innumerable hepatic metastatic lesions are redemonstrated , sensitivity of which is limited without the use of IV contrast. A dominant mass of the inferior right hepatic lobe measures 7.2 cm. Trace abdominopelvic ascites, new from comparison. Spleen and right adrenal gland are unremarkable. Mild thickening of the left adrenal gland. Prior cholecystectomy. Moderate to severe generalized pancreatic atrophy. Mild nonspecific bilateral perinephric stranding. No ureteral calculi or obstructive uropathy. Prior hysterectomy. Extensive calcification of the aorta without aneurysm. Scattered mildly prominent retroperitoneal lymph nodes again seen. Fluid-filled distal esophagus. Mild wall thickening of the distal esophagus with small sliding-type hiatal hernia. No small bowel obstruction. Colonic diverticulosis. Moderate wall thickening throughout the sigmoid colon with pericolonic inflammation. Additionally, there is thickening of the adjacent peritoneum with a fluid and air-filled tract extending towards the vaginal cuff (for example best seen on images 329 through 351 of series 3). Air and debris noted within the vaginal canal. No drainable fluid collection. Large cecal mass with ill-defined margins adjacent lul and peritoneal metastasis redemonstrated. Fluid-filled terminal ileum with mild wall thickening. Scattered areas of omental/peritoneal nodularity are seen, for example image 161 series 3 about the lateral left midabdomen equivocal for metastasis. Lul metastasis on image 109 series 3 measures 3.5 x 2.5 cm, unchanged Mild generalized body wall edema. Multilevel spondylitic spurring with facet arthrosis and discogenic degeneration throughout the spine. No definite suspicious lytic or blastic bony lesions to suggest osseous metastasis. Indeterminate ill-defined 9 mm lucent lesion of the posterior aspects T11 vertebral body is unchanged from comparison. IMPRESSION: 1. Large ill-defined soft tissue mass of the cecum compatible with patient's known primary colorectal carcinoma redemonstrated with adjacent lul and peritoneal metastasis. 2. Diffuse hepatic metastasis with trace abdominopelvic ascites. 3. Colonic diverticulosis with sigmoid wall thickening and adjacent inflammation is compatible with acute sigmoid diverticulitis. Air and fluid- filled tract extending towards the vagina suggests associated colovaginal fistula with air and debris within the vaginal canal. 4. No bowel obstruction. 5. Trace bilateral pleural effusions with opacities of the right lung base suggestive of pneumonitis. 6. Additional findings as above. Electronically signed by: Gaston Montejo M.D. 04/21/2018 9:50 PM XR chest 1V portable HISTORY: 83 years-old Female fever acute fever COMPARISON: Chest radiograph 03/18/2018 TECHNIQUE: Portable AP view of the chest FINDINGS: Cardiac silhouette is enlarged, unchanged. Left subclavian pacer is again noted within the midportion of the catheter looping superiorly in the region of the left internal jugular vein. Distal portion of the catheter is seen within the region of the mid SVC. There is no pneumothorax. Blunting of the costophrenic angles redemonstrated suggesting scarring/atelectasis with trace effusions not excluded. Mild chronic interstitial coarsening without overt pulmonary edema. Degenerative changes of the shoulders and spine. Surgical clips project over the lateral right breast. IMPRESSION: Cardiomegaly without acute process. The above report was generated using voice recognition software. It may contain grammatical, syntax or spelling errors. Electronically signed by: Gaston Montejo M.D. 04/21/2018 9:31 PM ECG Data Attestation: I personally reviewed and interpreted this ECG as follows: Indication: tachycardia Rate (beats per minute): 104 Rhythm: atrial fibrillation Findings: + other (RVR, QTC of 391); no acute ischemic change Blood Pressure Blood Pressure Findings: Normal blood pressure Blood Pressure Disposition: further management by hospitalist Discharge Plan Visit Data Chief Complaint: Abdominal Pain Stated Complaint: AB PAIN ED Provider: Ian Zamudio Discharge Problem: Diverticulitis large intestine, Fistula of vagina to large intestine, Sepsis, V tach, Elevated troponin Patient Disposition: Being Evaluated by Hospitalist Forms Stand Alone Forms: [facility] Prescriptions Prescriptions: No Action furosemide [Lasix] 40 mg Tablet 40 mg PO QAM RF: 0 aspirin [Aspir-81] 81 mg Tablet,Delayed Release (Dr/Ec) 81 mg PO QAM RF: 0 spironolactone 50 mg Tablet 50 mg PO DAILY RF: 0 insulin aspart U-100 [Novolog Flexpen U-100 Insulin] 100 unit/mL Insulin Pen SUBCUT AC RF: 0 apixaban [Eliquis] 5 mg Tablet 5 mg PO BID Qty: 60 RF: 0 acetaminophen 325 mg Tablet 650 mg PO Q6H MDD 3gm/24hr PRN (Reason: Pain, Moderate) RF: 0 baclofen 10 mg tablet 10 mg PO AMHS RF: 0 cwaxdgdl-kad-SW-lycopen-lutein [Centrum Silver] 0.4-300-250 mg-mcg-mcg Tablet 1 tab PO DAILY RF: 0 omeprazole 40 mg Capsule,Delayed Release(Dr/Ec) 40 mg PO DAILY RF: 0 metoprolol tartrate 25 mg tablet 25 mg PO AMHS RF: 0 morphine concentrate 100 mg/5 mL (20 mg/mL) Solution 10 mg PO Q6H PRN (Reason: Pain, Severe) RF: 0 Referrals Referrals: Silviano Richards III, CRNP [Primary Care Provider] - The scribe's documentation has been prepared under my direction and personally reviewed by me in its entirety. I confirm that the note above accurately reflects all work, treatment, procedures, and medical decision making performed by me.
--- NOTE | 2018-04-22 00:09 | History & Physical Report ---
Date of Service April 22, 2018 Assessment & Plan (1) Diverticulitis large intestine: 83-year-old female was admitted on 21 April 2018 for sepsis and V. tach. Diverticulitis and Sepsis: Febrile, tachycardic, WBC 27, but no hypotension. POC lactate 1.97. Source is likely diverticulitis. Patient has known history of metastatic colorectal cancer to liver. See recent discharge summary on Dec. Brief review of notes mentions oncology says she cannot tolerate further chemotherapy. - ED started patient on aztreonam and daptomycin. - Blood cultures pending. - Pain management with morphine. 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 Hypoxia: SpO2 down to 87% on room air. Quickly improved with 2 L nasal cannula oxygen. Portable chest x-ray shows no acute process. She denies any difficulty breathing or chest symptoms. - Monitor for now. Vtach: While in ED, noted brief couple seconds runs of asymptomatic V tach. Has since returned to an irregularly irregular sinus rhythm. - ED started patient on amio drip. Hypokalemia: Admit K 2.9. Will replace and recheck in the morning. Hypomagnesemia: Admit 1.5. Will replace and recheck in the morning. Elevated troponin: Admit TnI 1.56. No reports of chest pain. Already on anticoagulation. - We will trend troponins. Ongoing medical issues: - Esophageal dysmotility, Schatzki's ring, duodenitis: Patient underwent a video swallow on last admission. Was placed on baclofen 10 mg p.o. twice daily. Continue here. - Hypertension: At home is on metoprolol 25 mg twice daily and spironolactone 50 mg daily. Continue here. - Hyperlipidemia: Not on any home meds for same. - Diabetes: Per patient, is on lantus 23 units and novolog sliding scale. Will place glycemic consult. - Paroxysmal A. fib: At home is on apixaban. Continue here. - Chronic diastolic CHF and edema: See echo on [id number], EF 55-60%. At home is on Lasix 40 mg every morning. Continue here. - Thrombocytopenia: Prior history of the same. Admit platelet count 176. - History of breast cancer in 2009. - Severe protein calorie malnutrition. - Aortic (severe) and mitral stenosis. Code status: After discussion with family by myself and ED provider, no CPR, no intubation, no pressors, but they do approve IV fluids and antibiotics. Diet: DM, cardiac, bite-sized. DVT prophy: On home eliquis. PT/OT: Ordered. Disbo:Admit to PCU/telemetry. 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: (4) V tach: (5) Hypoxia: (6) Hypokalemia: (7) Hypomagnesemia: (8) Elevated troponin: (9) Esophageal dysmotility: (10) Schatzki's ring: (11) Duodenitis: (12) Hypertension: (13) Hyperlipidemia: (14) Diabetes: (15) Colon cancer metastasized to liver: (16) Paroxysmal atrial fibrillation: (17) Chronic diastolic CHF (congestive heart failure): (18) Thrombocytopenia: (19) Breast cancer: (20) Severe protein-calorie malnutrition: (21) Aortic stenosis: (22) Mitral stenosis: History of Present Illness Primary Care Provider: Silviano Richards III, KRYSTAL 83-year-old female presents as a transfer from [facility] for progressively worsening right lower quadrant abdominal pain throughout today ( ). She also noticed some nausea, vomiting of �a little bit� of blood, and ongoing mucousy bowel movements. She says the bowel movements have been like this since her hospital discharge on . She says she had a fever over [facility] as well. Here in the ED, patient says that her abdominal pain is improved with pain medication. She denies any present chest pain, shortness of breath, acute urinary symptoms, or other acute concerns. Past medical history includes breast cancer, hyperlipidemia, diabetes, hypertension, colon cancer with metastasis to liver, mitral stenosis and mitral regurg, chronic diastolic congestive heart failure, aortic stenosis, esophageal dysmotility, paroxysmal A. fib, edema. Past surgical history includes total hysterectomy, cholecystectomy, breast lumpectomy, cataract surgery, port access placed. Social history includes living at home with spouse. Never smoked. Allergies Allergy/AdvReac Type Severity Reaction Status Date / Time Penicillins Allergy Mild RASH Verified 04/21/18 23:45 VITOR Inhibitors Allergy Unknown HIVES Verified 04/21/18 23:45 Home Medications Home Medications Medication Instructions Recorded Confirmed Type aspirin [Aspir-81] 81 mg PO QAM 01/21/18 04/21/18 History furosemide [Lasix] 40 mg PO QAM 01/21/18 04/21/18 History spironolactone 50 mg PO DAILY 01/21/18 04/21/18 History apixaban [Eliquis] 5 mg PO BID #60 tab 04/09/18 04/21/18 Rx acetaminophen 650 mg PO Q6H PRN MDD 3gm/24hr 04/21/18 04/21/18 History baclofen 10 mg PO AMHS 04/21/18 04/21/18 History insulin aspart U-100 [Novolog 1 sliding scale dose SUBCUT ACHS 04/21/18 History PenFill U-100 Insulin] metoprolol tartrate 25 mg PO AMHS 04/21/18 04/21/18 History morphine concentrate 10 mg PO Q6H PRN 04/21/18 04/21/18 History mouthwashes 1 dose MUCOUS MEMBRANE AC 04/21/18 04/21/18 History qyeclubz-sra-IM-lycopen-lutein 1 tab PO DAILY 04/21/18 04/21/18 History [Centrum Silver] omeprazole 40 mg PO DAILY 04/21/18 04/21/18 History Past Med/Surg History Medical History History of breast cancer (Chronic) RIGHT. (+)RADIATION (2009) Hyperlipidemia (Chronic) Diabetes mellitus (Chronic) TYPE 2 IDDM HTN (hypertension) (Chronic) Cancer H/O BREAST CANCER 2009 CURRENT COLON CANCER WITH METS TO LIVER. Mitral regurgitation Mitral stenosis Chronic diastolic CHF (congestive heart failure) Esophageal dysmotility Aortic stenosis Paroxysmal atrial fibrillation Edema Colon cancer metastasized to liver Surgical History Hx of hysterectomy (Chronic) MAGALYS WITH BSO History of dilation and curettage (Chronic) Hx of cholecystectomy (Chronic) History of lumpectomy of right breast (Chronic) History of cataract surgery BILATERAL Encounter for care related to vascular access port access port placed 03/18/2018. fentanyl/propofol without issue. Family History Aunt Colon cancer Other No significant family history Social History Current Living Situation: Rehab Feels Safe at Home: Yes Safety Concerns: Feels Safe At This Time Smoking Status: Never smoker Tobacco Type: cigarettes Hx Alcohol Use: No Hx Substance Use: No Beliefs That Will Affect Care: None Preferred Language: Syriac [employer] Installer Required: No Review of Systems Constitutional: Denies chills, focal weakness Eyes: Denies any visual loss or diplopia ENT: History of swallowing difficulties. Respiratory: Denies any dyspnea, cough, hemoptysis Cardiovascular: Denies any chest pain or feeling of edema Gastrointestinal: See HPI. Musculoskeletal: Denies any acute extremity pains, myalgias, or focal weakness Skin: Denies any known acute rashes or lesions Neuro: Denies any headache, acute focal weakness or numbness.. Psych: Denies any recent depression or anxiety Physical Exam 2 Vital Signs (Past 24 Hours): Last Vital Signs Temp 36.6 C 04/21/18 23:30 Pulse 93 H 04/21/18 23:30 Resp 18 04/21/18 23:30 BP 117/76 04/21/18 23:30 Pulse Ox 99 04/21/18 23:30 Physical Exam: GENERAL: Awake, alert, well-appearing, in no acute distress HENT: Normocephalic, atraumatic. Oropharynx unremarkable. EYES: Normal conjunctiva. Sclera non-icteric. NECK: Inspection normal. Non-tender. Supple and full ROM. No nuchal rigidity. CARDIAC: +S1S2 irregularly irregular, systolic murmur. RESPIRATORY: Clear to auscultation. No wheezes or rales. Normal respiratory effort. GI: +BS, soft, non-distended positive tenderness to palpation in the right lower greater than right upper quadrants. Non-peritoneal. EXTREMITIES: No pedal edema or calf tenderness. Moving all extremities naturally and easily. NEURO: No gross neuro deficits. Lines: Left upper chest Mediport access. Results & Data Laboratory Results 04/21/18 04/21/18 04/21/18 Range/Units 21:15 21:15 21:00 WBC (4.8-10.8) K/uL RBC (4.2-5.4) M/uL Hgb (12.0-16.0) g/dL POC Hgb 13.6 (12.0-16.0) g/dl Hct (37-47) % POC Hct 40 (37-47) % MCV (80-100) fL MCH (25-34) pg MCHC (32-36) g/dL RDW Std Deviation (36.4-46.3) fL RDW Coeff of Bryanna (11.5-14.5) % Plt Count (130-400) K/uL MPV (7.4-10.4) fL Immature Gran % (Auto) % Neut % (Auto) % Lymph % (Auto) % Bureau % (Auto) % Eos % (Auto) % Baso % (Auto) % Immature Gran # (Auto) (0.00-0.02) K/uL Neut # (Auto) (1.4-6.5) K/uL Lymph # (Auto) (1.2-3.4) K/uL Bureau # (Auto) (0.11-0.59) K/uL Eos # (Auto) (0-0.5) K/uL Baso # (Auto) (0-0.2) K/uL PT 13.2 H (9.0-12.0) Seconds INR 1.3 H (0.9-1.1) APTT 29.1 (21.0-31.0) Seconds PTT Ratio 1.1 POC Sodium 136 (135-144) mEq/L Sodium (136-145) mmol/L POC Potassium 2.9 L (3.3-5.0) mEq/L Potassium (3.5-5.1) mmol/L POC Chloride 95 L (101-112) mEq/L Chloride (98-107) mmol/L Carbon Dioxide (21-32) mmol/L POC Total CO2 27 (24-31) mEq/l Anion Gap (3-11) POC Anion Gap 19.0 (16-25) mmol/L POC BUN 13 (7-18) mg/dl BUN (7-18) mg/dl Creatinine (0.6-1.2) mg/dl POC Creatinine 0.6 (0.6-1.3) mg/dl Est Cr Clr Drug Dosing ml/min Est GFR ( Amer) Est GFR (Non-Af Amer) BUN/Creatinine Ratio (10-20) Glucose (70-99) mg/dl POC Glucose (other) 251 H (70-99) mg/dl POC Lactic Acid Nate 1.97 H (0.90-1.70) mmol/L Calcium (8.5-10.1) mg/dl POC Ioniz Calcium Giovanni 1.07 L (1.12-1.32) mmol/l Magnesium (1.8-2.4) mg/dl Total Bilirubin (0.2-1) mg/dl Direct Bilirubin (0-0.2) mg/dl AST (15-37) U/L ALT (12-78) U/L Alkaline Phosphatase (45-117) U/L Troponin I (0-0.045) ng/ml Total Protein (6.4-8.2) gm/dl Albumin (3.4-5.0) gm/dl Lipase (73-393) U/L TSH (0.300-4.500) uIu/ml 04/21/18 04/21/18 Range/Units 21:00 21:00 WBC 27.52 H (4.8-10.8) K/uL RBC 5.03 (4.2-5.4) M/uL Hgb 13.4 (12.0-16.0) g/dL POC Hgb (12.0-16.0) g/dl Hct 40.7 (37-47) % POC Hct (37-47) % MCV 80.9 (80-100) fL MCH 26.6 (25-34) pg MCHC 32.9 (32-36) g/dL RDW Std Deviation 54.0 H (36.4-46.3) fL RDW Coeff of Bryanna 19.6 H (11.5-14.5) % Plt Count 176 (130-400) K/uL MPV 10.0 (7.4-10.4) fL Immature Gran % (Auto) 0.6 % Neut % (Auto) 88.7 % Lymph % (Auto) 7.2 % Bureau % (Auto) 3.4 % Eos % (Auto) 0.0 % Baso % (Auto) 0.1 % Immature Gran # (Auto) 0.16 H (0.00-0.02) K/uL Neut # (Auto) 24.42 H (1.4-6.5) K/uL Lymph # (Auto) 1.97 (1.2-3.4) K/uL Bureau # (Auto) 0.94 H (0.11-0.59) K/uL Eos # (Auto) 0.00 (0-0.5) K/uL Baso # (Auto) 0.03 (0-0.2) K/uL PT (9.0-12.0) Seconds INR (0.9-1.1) APTT (21.0-31.0) Seconds PTT Ratio POC Sodium (135-144) mEq/L Sodium 135 L (136-145) mmol/L POC Potassium (3.3-5.0) mEq/L Potassium 2.9 L (3.5-5.1) mmol/L POC Chloride (101-112) mEq/L Chloride 97 L (98-107) mmol/L Carbon Dioxide 24 (21-32) mmol/L POC Total CO2 (24-31) mEq/l Anion Gap 14.0 H (3-11) POC Anion Gap (16-25) mmol/L POC BUN (7-18) mg/dl BUN 13 (7-18) mg/dl Creatinine 0.75 (0.6-1.2) mg/dl POC Creatinine (0.6-1.3) mg/dl Est Cr Clr Drug Dosing 61.0 ml/min Est GFR ( Amer) 84.8 Est GFR (Non-Af Amer) 73.2 BUN/Creatinine Ratio 17.7 (10-20) Glucose 238 H (70-99) mg/dl POC Glucose (other) (70-99) mg/dl POC Lactic Acid Nate (0.90-1.70) mmol/L Calcium 8.4 L (8.5-10.1) mg/dl POC Ioniz Calcium Giovanni (1.12-1.32) mmol/l Magnesium 1.5 L (1.8-2.4) mg/dl Total Bilirubin 1.1 H (0.2-1) mg/dl Direct Bilirubin 0.5 H (0-0.2) mg/dl AST 73 H (15-37) U/L ALT 46 (12-78) U/L Alkaline Phosphatase 253 H (45-117) U/L Troponin I 1.560 H* (0-0.045) ng/ml Total Protein 5.9 L (6.4-8.2) gm/dl Albumin 1.9 L (3.4-5.0) gm/dl Lipase 40 L (73-393) U/L TSH 2.300 (0.300-4.500) uIu/ml Diagnostic Findings XR chest 1V portable IMPRESSION: Cardiomegaly without acute process. ABDOMEN AND PELVIS CT WITHOUT CONTRAST IMPRESSION: 1. Large ill-defined soft tissue mass of the cecum compatible with patient's known primary colorectal carcinoma redemonstrated with adjacent toribio and peritoneal metastasis. 2. Diffuse hepatic metastasis with trace abdominopelvic ascites. 3. Colonic diverticulosis with sigmoid wall thickening and adjacent inflammation is compatible with acute sigmoid diverticulitis. Air and fluid- filled tract extending towards the vagina suggests associated colovaginal fistula with air and debris within the vaginal canal. 4. No bowel obstruction. 5. Trace bilateral pleural effusions with opacities of the right lung base suggestive of pneumonitis. 6. Additional findings as above. Code Status & VTE Plan Code Status Code status: After discussion with family by myself and ED provider, no CPR, no intubation, no pressors, but they do approve IV fluids and antibiotics. VTE Prophylaxis Plan VTE Prophylaxis will be ordered: Yes Supervising Physician Co-Signing Physician Notes Pt seen/examined in conjunction with resident MD William Ruiz. Admission orders and plan of care formulated with resident 83 y/o F Hx breast CA, HTN, HLD, DM II, metastatic colon CA, mitral stenosis and regurge, , chronic diastolic CHF, esophageal dysmotility, paroxysmal AF. Presented with pain in her RLQ and flank. Marked leukocytosis seen on initial labs. A CT of the abdomen revealed sigmoid divertilculitis and a rectovaginal fistula. The pt was noted to be having asymptomatic runs of VT in the ER. OE AAO x 3 S1,2 R + murmur CTAB Very tender over R abdomen extending to flank No CCE No Deficits P: 1) Diverticulitis - possibly septic - placed on Dapto, Aztreonam and flagyl. 2) VT - placed on amiodarone - assigned to telemetry 3) CHF - cont B nicholas and Lasix as tolerated 4) DM - placed on a SS 5) AF - cont B nicholas - anticoagulated with Eliquis 6) Reg her fistula - she is a poor candidate for intervention. She may have to remain on suppressive antibiotis - she did report recent vaginal discharge when further questioned Resident Activity Tracking Resident Involvement: Resident Care Provided Care Provided: Adult [facility] Medicine _ (1) Diabetes Chronic kidney disease stage: Diabetes mellitus complication detail: Diabetes mellitus complication status: with unspecified complications Diabetes mellitus termite technician insulin use: with mcc use Diabetes mellitus macular edema: Diabetes mellitus type: type 2 Diabetic retinopathy severity: Laterality: Proliferative retinopathy type: Qualified Code(s): E11.8 - Type 2 diabetes mellitus with unspecified complications; Z79.4 - care home (current) use of insulin (2) Aortic stenosis Cardiac valve disease etiology: etiology unspecified Qualified Code(s): I35.0 - Nonrheumatic aortic (valve) stenosis (3) Sepsis Sepsis type: sepsis due to unspecified organism Qualified Code(s): A41.9 - Sepsis, unspecified organism (4) Hypertension Hypertension type: essential hypertension Qualified Code(s): I10 - Essential (primary) hypertension (5) Diverticulitis large intestine Diverticulitis bleeding: without bleeding Diverticulitis complication: unspecified complication status Qualified Code(s): K57.32 - Diverticulitis of large intestine without perforation or abscess without bleeding
[2018-04-22] MEDS ORDERED: MAGNESIUM SULFATE / D5W 1 GM/100 ML BAG IV ONE (01:13)
[2018-04-22] MEDS ORDERED: ACETAMINOPHEN 325 MG TAB PO PRN (01:13)
[2018-04-22] MEDS ORDERED: PHARMACY GLYCEMIC MGMT CONSULT PRN (01:20)
[2018-04-22] MEDS ORDERED: INSULIN GLARGINE SOLOSTAR 100 UNITS/ML 3 ML PEN SC ONE ×2 (01:30→09:00)
[2018-04-22] MEDS: POTASSIUM CHLORIDE / WTR 10 MEQ/100 ML PLCT IV SCH ×4 (01:41→05:07)
[2018-04-22] MEDS ORDERED: DEXTROSE 50% 50 ML SYRINGE IV PRN (01:48)
[2018-04-22] MEDS ORDERED: CARBOHYDRATES FOR HYPOGLYCEMIA PO PRN (01:48)
[2018-04-22] MEDS ORDERED: GLUCOSE 10 TABS/TUBE PO PRN (01:48)
[2018-04-22] MEDS ORDERED: GLUCOSE 40% GEL 15 GM TUBE PO PRN (01:48)
[2018-04-22] MEDS ORDERED: GLUCAGON FOR INJ 1 MG VIAL IM PRN (01:48)
[2018-04-22] MEDS: INSULIN ASPART 100 UNITS/ML 3 ML PEN SC SCH ×5 (01:52→20:21)
[2018-04-22] MEDS: metroNIDAZOLE 500 MG/100 ML BAG IV SCH ×3 (04:26→20:13)
[2018-04-22] MEDS: AMIODARONE / D5W 360 MG/200 ML BAG IV SCH ×3 (04:28→22:42)
[2018-04-22] MEDS ORDERED: DAPTOMYCIN CONSULT ACTIVE PRN (04:38)
[2018-04-22] MEDS ORDERED: AZTREONAM CONSULT ACTIVE PRN (04:38)
[2018-04-22] MEDS: AZTREONAM 2,000 MG in DEXTROSE 5% 100 ML IV SCH ×3 (07:30→21:40)
--- NOTE | 2018-04-22 07:49 | Family Medicine Progress Note ---
Date of Service April 22, 2018 Assessment & Plan (1) Diverticulitis large intestine: Ms. Jair Thurman is a 83 year old woman with a PMH significant for colon cancer with liver mets who presents for acute diverticulitis Diverticulitis CT in ER showing diverticulitis as well as colo-vaginal fistula. Currently on aztreonam, daptomycin, and flagyl White count as high as 35 no fever currently and vital signs stable. Will continue with IV antibiotics treatment for now. Ventricular Tachycardia Patient had several brief episodes of V tach in ER Currently on amiodarone 360 mg IV Esophageal Dysmotility Has been unable to keep anything down Consulted speech therapy and they recommended she's not able to swallow even clear liquids. With worsening esophageal function and inability to keep medication or food down will need to have discussion about goals of care and ongoing management of feeding and medication administration Family meeting with palliative care and case management tomorrow. On Lactated Ringers 75 ml/hr to help supplement lack of fluid intake. [place]-Vaginal Fistula [place] vaginal fistula confirmed on CT No way to treat without surgical procedure which patient does not wish to undergo. Future infections are bound to occur, family and patient aware of this and appear to be leaning towards conservative management/hospice care. Colon Cancer Patient was determined to be too sick for further chemotherapy treatment. Goals of care to be further discussed tomorrow Potentially hospice care candidate (2) Fistula of vagina to large intestine: (3) V tach: (4) Esophageal dysmotility: (5) Colon cancer metastasized to liver: (6) DVT prophylaxis: Supervising Physician Co-Signing Physician Notes Attending attestation Pt seen and examined in concert with Dr. Gonzalez. In agreement with the documented findings as noted in the resident documentation with any exceptions or additions as noted here. Complains of intermittent mucosal diarrhea and similar vaginal discharge. LLQ pain has considerably decreased since abx initiated and is well controlled with present medication. New onset left calf pain which worsens with WB and direct pressure. On examination, S1/S2 no MCG. CTAB, decreased at b/l bases. Abd ND, BS+ve, +ve TTP LLQ. Trace pitting edema b/l LE. Sepsis in the setting of diverticulitis - symptomatic improvement on broad spectrum Abx - continue regimen, f/u BCx Colovaginal fistula - Present on CT, defers procedural intervention Nonsustained episodic ventricular tachycardia - continue amiodarone presently, likely to D/C and monitor based on clinical status Esophageal dysmotility w/ h/o Schatzki's ring - failed S/S evaluation - GI consultation for evaluation and ?intervention L calf pain - US doppler HTN - continue present regimen, monitor BP and hold for BP < 100/70 Goals of care - after discussion, palliative care consultation request placed Subjective Ms Thurman is in much less pain this morning than she was last night. Still having pain on movement, sitting up or twisting but is resting comfortably in bed right now. Her biggest issue right now is that she cannot keep any food or liquid down without regurgitating it later. She says her family will be in later on today and would like to be kept updated. She is very aware of the severity of her illness and difficult prognosis associated with it and would like medication and IV medications but no procedures, feeding tubes, or other resuscitation strategies. Constitutional: + fatigue and + weakness; no fever, no chills and no body aches Respiratory: no cough and no dyspnea Cardiovascular: no chest pain, no dyspnea and no syncope Gastrointestinal: + abdominal pain, + vomiting and + change in stools (mucus only) Physical Exam 2 Vital Signs (Past 24 Hours): Last Vital Signs Temp 37.1 C 04/22/18 03:48 Pulse 101 H 04/22/18 03:48 Resp 19 04/22/18 03:48 BP 106/64 04/22/18 03:48 Pulse Ox 96 04/22/18 03:48 Constitutional: + ill appearing, + well hydrated, + frail appearing and comfortable; no altered mental status Respiratory: normal respiratory effort, lungs clear to auscultation Cardiovascular: Rate/Rhythm: regular rate and regular rhythm Gastrointestinal (Abdomen): Percussion/Palpation: + abdomen tender (umbilical tenderness and llq tenderness severe), + guarding and abdomen soft; abdomen not rigid Psychiatric: Affect: euthymic affect Thought Process: clear/coherent thought process _ (1) Diverticulitis large intestine Diverticulitis bleeding: without bleeding Diverticulitis complication: unspecified complication status Qualified Code(s): K57.32 - Diverticulitis of large intestine without perforation or abscess without bleeding
[2018-04-22 08:01] LABS: Hematocrit (blood only) 40.5 % (37-47); Hemoglobin 13.2 g/dL (12.0-16.0); Mean Corpuscular Hgb Conc 32.6 g/dL (32-36); Mean Corpuscular Volume 81.3 fL (80-100); Mean Platelet Volume 10.4 fL (7.4-10.4); Platelet Count 158 K/uL (130-400); RDW Coefficient of Variation 20.2 % (11.5-14.5); RDW Standard Deviation 56.2 fL (36.4-46.3); Red Blood Count 4.98 M/uL (4.2-5.4)
[2018-04-22 08:08] LABS: Anisocytosis Present; Basophils # (auto) 0.04 K/uL (0-0.2); Basophils % (auto) 0.1 %; Eosinophils # (auto) 0.01 K/uL (0-0.5); Immature Granulocytes # (auto) 0.24 K/uL (0.00-0.02); Immature Granulocytes % (auto) 0.7 %; Lymphocytes % (auto) 6.4 %; Monocytes # (auto) 1.34 K/uL (0.11-0.59); Monocytes % (auto) 3.7 %; Neutrophils # (auto) 31.87 K/uL (1.4-6.5); Neutrophils % (auto) 89.1 %
[2018-04-22] MEDS: CEROVITE ADV FORMULA TAB PO SCH (08:20)
[2018-04-22] MEDS: METOPROLOL TARTRATE 25 MG TAB PO SCH ×2 (08:20→20:14)
[2018-04-22] MEDS: APIXABAN 5 MG TABLET PO SCH ×2 (08:21→20:14)
[2018-04-22] MEDS: BACLOFEN 10 MG TAB PO SCH ×2 (08:21→20:14)
[2018-04-22] MEDS: PANTOprazole 40 MG TAB PO SCH (08:21)
[2018-04-22] MEDS: ASPIRIN 81 MG ECTAB PO SCH (08:21)
[2018-04-22] MEDS: FUROSEMIDE 40 MG TAB PO SCH (08:21)
[2018-04-22] MEDS: SPIRONOLACTONE 25 MG TAB PO SCH (08:22)
[2018-04-22 08:26] LABS: BUN Creatinine Ratio 19.6 (10-20); Calcium 8.5 mg/dl (8.5-10.1); Creatinine Clr Calc Pharmacy 52.7 ml/min; Est GFR (African American) 72.9; Est GFR (Non-African American) 62.9; Magnesium 1.8 mg/dl (1.8-2.4); Potassium 3.4 mmol/L (3.5-5.1)
[2018-04-22 08:31] LABS: Phosphorus 3.5 mg/dl (2.5-4.9); Troponin I 1.43 ng/ml (0-0.045)
--- NOTE | 2018-04-22 10:57 | Pharmacy Report ---
Glycemic Control Consultation - Date of Service April 22, 2018 - Scope Scope: Glycemic Pharmacist consulted by Dr Villegas on 04/21/17 for glycemic control and to write orders per [facility] inpatient glycemic control protocol - Objective Weight: 83.9 kg Accuchecks BSG (last 24hrs): 04/21/18 04/21/18 04/22/18 21:00 21:15 01:31 Glucose 238 H POC Glucose 244 H POC Glucose (other) 251 H 04/22/18 04/22/18 04/22/18 07:25 07:31 07:32 Glucose 302 H POC Glucose 411 H* 327 H POC Glucose (other) Laboratory Data (last 24hrs): 04/21/18 04/22/18 21:00 07:25 Potassium 2.9 L 3.4 L D Carbon Dioxide 24 24 Anion Gap 14.0 H 11.0 Creatinine 0.75 0.85 Est Cr Clr Drug Dosing 61.0 52.7 Beta-Hydroxybutyric Acd 12.16 H - Recent Pertinent Medications Outpatient Anti-diabetic Regimen: * Lantus 23 units daily + Novolog SSI (reported by patient) * A1c = 8.2 % 03/31/18 The patient is currently receiving: * Basal insulin: Lantus 15 units last evening * Correctional Insulin: Novolog Correction per scale ACHS Goal Range: Low 120 mg/dL - High 160 mg/dL Correction Factor: 30 mg/dL/unit * Prandial insulin: Per carb ratio of 1 unit per 10 grams CHO consumed Risk Factors for Insulin Resistance: * Infection: GI infection * IVF: amiodarone infusion * Diet: T2DM - Assessment & Plan Assessment & Plan: ASSESSMENT: * 83 yr old T2DM female admitted with sepsis from possible GI source and ventricular tachycardia. * Patient was recently admitted to [facility] in March. During that admission, she required significantly less insulin than she was previously taking at home due to nausea/vomiting/poor diet. She averaged 23 units per day with very good glycemic control. * Brittney was severely hyperglycemic this morning with BSG of 411, repeat 327 mg/dL. Unknown reason for this degree of hyperglycemia. Of note, her Lantus dose was not given until ~0200. An additional 20 units of Lantus will be ordered for this morning, then dose per scale until exact needs are known. PLAN FOR INPATIENT GLYCEMIC CONTROL: * Basal insulin * Lantus 20 units SQ this morning, then per scale BID * 8 units for BSG < 140 mg/dL * 14 units for BSG 140 mg/dL or more * Bolus insulin - tighten CF/CR * NovoLog per scale ACHS or Q6hrs while NPO * Goal Range: Low 120 mg/dL - High 160 mg/dL * Correction Factor: 25 mg/dL/unit * Nutritional / Prandial insulin per carb ratio of 1 unit per 9 grams CHO consumed * Please note that the plan above was derived based on current level of insulin resistance and hospital stress. These recommendations are appropriate for inpatient admission only. Plan of care upon discharge will need to be reassessed to avoid potential outpatient hypo/hyperglycemia. Thank you.
--- NOTE | 2018-04-22 16:47 | Ultrasound Report ---
US venous doppler LE LT HISTORY: 83 years-old Female LLE tenderness acute pain and swelling of the left lower extremity COMPARISON: Duplex venous Doppler study 04/02/2018 TECHNIQUE: Multiple real-time sonographic images of the left lower from the deep venous structures we re obtained assessing grayscale appearance, color and spectral flow FINDINGS: Normal flow, compressibility, phasicity and augmentation of the left lower extremity deep venous stru ctures. Mild subcutaneous edema about the lower leg. IMPRESSION: No sonographic evidence of deep venous thrombosis. The above report was generated using voice recognition software. It may contain grammatical, syntax o r spelling errors. Electronically signed by: Gaston Montejo M.D. 04/22/2018 4:46 PM
[2018-04-22] MEDS: ONDANSETRON INJ 2 MG/ML 2 ML VIAL IV PRN (17:12)
[2018-04-22] MEDS: MoRPHine SULFATE 4 MG/ML 1 ML CARP\\VIAL IV PRN ×2 (19:21→23:46)
[2018-04-22] MEDS: LACTATED RINGER'S 1,000 ML IV SCH (19:22)
[2018-04-22] MEDS: INSULIN GLARGINE SOLOSTAR 100 UNITS/ML 3 ML PEN SC SCH (20:21)
[2018-04-22] MEDS: DAPTOmycin 350 MG in SYRINGE 0 ML IV SCH (21:40)
[2018-04-23] MEDS ORDERED: INSULIN ASPART 100 UNITS/ML 3 ML PEN SC SCH
[2018-04-23] MEDS: HEPARIN 100 UNIT/ML 5ML FLUSH FLUSH SCH (01:26)
[2018-04-23 04:08] LABS: Hematocrit (blood only) 42.7 % (37-47); Hemoglobin 13.5 g/dL (12.0-16.0); Mean Corpuscular Hgb Conc 31.6 g/dL (32-36); Mean Corpuscular Volume 82.9 fL (80-100); Mean Platelet Volume 10.6 fL (7.4-10.4); Platelet Count 196 K/uL (130-400); RDW Coefficient of Variation 20.1 % (11.5-14.5); RDW Standard Deviation 57.5 fL (36.4-46.3); Red Blood Count 5.15 M/uL (4.2-5.4); White Blood Count 27.83 K/uL (4.8-10.8)
[2018-04-23] MEDS: metroNIDAZOLE 500 MG/100 ML BAG IV SCH ×3 (04:13→21:12)
[2018-04-23 04:26] LABS: BUN Creatinine Ratio 19.5 (10-20); Calcium 8.2 mg/dl (8.5-10.1); Creatinine Clr Calc Pharmacy 34.7 ml/min; Potassium 3.5 mmol/L (3.5-5.1)
[2018-04-23 04:31] LABS: Anisocytosis Present; Basophils # (auto) 0.02 K/uL (0-0.2); Basophils % (auto) 0.1 %; Echinocytes 1+; Immature Granulocytes # (auto) 0.17 K/uL (0.00-0.02); Immature Granulocytes % (auto) 0.6 %; Lymphocytes # (auto) 2.54 K/uL (1.2-3.4); Lymphocytes % (auto) 9.1 %; Monocytes # (auto) 1.36 K/uL (0.11-0.59); Monocytes % (auto) 4.9 %; Neutrophils # (auto) 23.74 K/uL (1.4-6.5); Neutrophils % (auto) 85.3 %
[2018-04-23] MEDS: AZTREONAM 2,000 MG in DEXTROSE 5% 100 ML IV SCH ×2 (05:17→14:50)
[2018-04-23] MEDS: LACTATED RINGER'S 1,000 ML IV SCH (08:10)
[2018-04-23] MEDS: PANTOprazole 40 MG TAB PO SCH (08:11)
[2018-04-23] MEDS: APIXABAN 5 MG TABLET PO SCH ×2 (08:11→21:04)
[2018-04-23] MEDS: SPIRONOLACTONE 25 MG TAB PO SCH (08:11)
[2018-04-23] MEDS: ASPIRIN 81 MG ECTAB PO SCH (08:11)
[2018-04-23] MEDS: CEROVITE ADV FORMULA TAB PO SCH (08:11)
[2018-04-23] MEDS: METOPROLOL TARTRATE 25 MG TAB PO SCH ×2 (08:11→21:51)
[2018-04-23] MEDS: FUROSEMIDE 40 MG TAB PO SCH (08:12)
[2018-04-23] MEDS: BACLOFEN 10 MG TAB PO SCH ×2 (08:12→21:04)
[2018-04-23] MEDS: INSULIN ASPART 100 UNITS/ML 3 ML PEN SC SCH ×4 (08:21→21:51)
[2018-04-23] MEDS: INSULIN GLARGINE SOLOSTAR 100 UNITS/ML 3 ML PEN SC SCH ×2 (08:23→21:51)
[2018-04-23] MEDS: AMIODARONE / D5W 360 MG/200 ML BAG IV SCH ×2 (11:50→22:46)
[2018-04-23] MEDS: ONDANSETRON INJ 2 MG/ML 2 ML VIAL IV PRN (11:52)
[2018-04-23] MEDS: MoRPHine SULFATE 4 MG/ML 1 ML CARP\\VIAL IV PRN (11:53)
--- NOTE | 2018-04-23 12:32 | Palliative Care Consultation ---
Addendum entered and electronically signed by KRYSTAL Ruiz 14:49: Addendum (Blank) Addendum April 23, 2018 14:48 Received call back from patient's daughter, Isela. She requested meeting on Thursday, 2:30pm. She stated she knows her mom would not want a feeding tube and she plans to abide by her mother's wishes. She states that they would like to explore options of taking patient home possibly on hospice. However, for now she wants to continue current medical care in hopes that patient may improve as far as her infection and energy level. Isela states, "I think my expectation might be a little high, but I want to give her a chance." Further goals and plans to come on Thursday after meeting. Original Note: Date of Consultation April 23, 2018 Assessment & Plan (1) Goals of care, counseling/discussion: 83 year old female with PMH breast cancer, hyperlipidemia, diabetes, hypertension, colon cancer with metastasis to liver, mitral stenosis and mitral regurg, chronic diastolic congestive heart failure, aortic stenosis, esophageal dysmotility, paroxysmal A. fib, and others, presented with RLQ pain. Found to be diverticulitis, has colovaginal fistula, as well as non-sustained vtach. She is admitted to telemetry unit on IV amiodarone infusion. Patient is on IV aztreonam and flagyl as well. Patient has history of esophageal dysmotility that is worsening, she was evaluated by speech and is unable to swallow liquids at this point. Patient continues to be weak, not really improving in last two days. Uncertain of goals of care, family is interested in taking her home with hospice possible. -Met with patient in room 230-2. She is awake but slightly drowsy and tired. She is oriented x4 but is so tired she was unable to elaborate or speak a whole lot in conversation. Patient states she would be okay with going home to be made comfortable. -We talked about whether or not she'd want to continue IVF, she states "I don't want to be hooked up to things." Patient states we can talk to her daughter Isela about discharge planning and further goals of care. -Attempted to call Isela twice, no call back yet. -In regards to continuing IVF at home, I'm uncertain that they would be of any benefit. Patient is pale, weak, somewhat drowsy already, unable to really get out of bed. IF patient and family do decide to stop active treatment and move towards comfort measures, I believe if we stop all IV abx, amiodarone and other active treatment, her prognosis is probably quite short, maybe days to weeks. Therefore, IVF probably not to be of much benefit. She would probably gain more comfort from extremely small sips of water or moistened sponge to mouth. I will talk with patient's daughter about this. -Patient denies pain or other discomforts at this time. -Further goals and plans to follow after speaking with patient's family. (2) Diverticulitis large intestine: -Managed by hospitalists. -IV aztreonam and flagyl. 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 (4) V tach: -Managed by hospitalist. -On amiodarone infusion. (5) Esophageal dysmotility: -Was evaluated by speech therapy. Patient is regurgitating even liquids at this point. -Patient has hx of Schatzki's ring. -Patient currently NPO until goals of care are certain. -If she does wish to comfort feed despite risk of aspiration, could try clear liquids. (6) Colon cancer metastasized to liver: Supervising Physician Co-Signing Physician Notes Chart reviewed, patient seen and examined along with SAMSON Soares I was present during the entire exam and discussion with patient PE: Patient fatigued, denies discomfort HEENT: EOMI, normal hearing Respirations: Unlabored, decreased breath sounds at bases CV: Regular rate Abdomen: Soft, nontender on light palpation Extremities: Distal extremities cool to touch Agree with above note, assessment and plan as per SAMSON Soares-we will continue to provide support To patient and family with regards to medical decision making History of Present Illness Reason for Consultation: Goals of care, possible hospice Requesting Physician: Dr. Prasanth Gonzalez Attending Physician: Mandeep Mccormack MD History of Present Illness This 83 year old female patient with PMH breast cancer, hyperlipidemia, diabetes , hypertension, colon cancer with metastasis to liver, mitral stenosis and mitral regurg, chronic diastolic congestive heart failure, aortic stenosis, esophageal dysmotility, paroxysmal A. fib, and others, presented with RLQ pain. Found to be diverticulitis, has colovaginal fistula, as well as non-sustained vtach. She is admitted to telemetry unit on IV amiodarone infusion. Patient is on IV aztreonam and flagyl as well. Patient has history of esophageal dysmotility that is worsening, she was evaluated by speech and is unable to swallow liquids at this point. Patient continues to be weak, not really improving in last two days. Uncertain of goals of care, family is interested in taking her home with hospice possible. See A&P for details. Thank you kindly for this consult. We will follow. Allergies Allergy/AdvReac Type Severity Reaction Status Date / Time Penicillins Allergy Mild RASH Verified 04/21/18 23:45 VITOR Inhibitors Allergy Unknown HIVES Verified 04/21/18 23:45 Home Medications Home Medications Medication Instructions Recorded Confirmed Type aspirin [Aspir-81] 81 mg PO QAM 01/21/18 04/21/18 History furosemide [Lasix] 40 mg PO QAM 01/21/18 04/21/18 History spironolactone 50 mg PO DAILY 01/21/18 04/21/18 History apixaban [Eliquis] 5 mg PO BID #60 tab 04/09/18 04/21/18 Rx acetaminophen 650 mg PO Q6H PRN MDD 3gm/24hr 04/21/18 04/21/18 History baclofen 10 mg PO AMHS 04/21/18 04/21/18 History insulin aspart U-100 [Novolog 1 sliding scale dose SUBCUT ACHS 04/21/18 History PenFill U-100 Insulin] metoprolol tartrate 25 mg PO AMHS 04/21/18 04/21/18 History morphine concentrate 10 mg PO Q6H PRN 04/21/18 04/21/18 History mouthwashes 1 dose MUCOUS MEMBRANE AC 04/21/18 04/21/18 History lwglbewt-wja-VD-lycopen-lutein 1 tab PO DAILY 04/21/18 04/21/18 History [Centrum Silver] omeprazole 40 mg PO DAILY 04/21/18 04/21/18 History Patient History Medical History History of breast cancer (Chronic) RIGHT. (+)RADIATION (2010) Hyperlipidemia (Chronic) Diabetes mellitus (Chronic) TYPE 2 IDDM HTN (hypertension) (Chronic) Cancer H/O BREAST CANCER 2010 CURRENT COLON CANCER WITH METS TO LIVER. Mitral regurgitation Mitral stenosis Chronic diastolic CHF (congestive heart failure) Esophageal dysmotility Aortic stenosis Paroxysmal atrial fibrillation Edema Colon cancer metastasized to liver Surgical History Hx of hysterectomy (Chronic) MAGALYS WITH BSO History of dilation and curettage (Chronic) Hx of cholecystectomy (Chronic) History of lumpectomy of right breast (Chronic) History of cataract surgery BILATERAL Encounter for care related to vascular access port access port placed 03/18/2018. fentanyl/propofol without issue. Family History Aunt Colon cancer Other No significant family history Social History marital status: Current Living Situation: Rehab Feels Safe at Home: Yes Safety Concerns: Feels Safe At This Time Smoking Status: Never smoker Tobacco Type: cigarettes Hx Alcohol Use: No Hx Substance Use: No Beliefs That Will Affect Care: None Preferred Language: [place]ian Quality Auditor Required: No Review of Systems Constitutional: + weakness Ear, Nose, Mouth, Throat: + dry mouth Respiratory: no cough and no dyspnea Cardiovascular: no chest pain and no edema Gastrointestinal: no abdominal pain, no nausea and no vomiting Neurologic: no confusion Psychiatric: no anxiety Physical Exam 2 Vital Signs (Past 24 Hours): Last Vital Signs Temp 36.7 C 04/23/18 11:00 Pulse 73 04/23/18 11:00 Resp 18 04/23/18 11:00 BP 97/66 L 04/23/18 11:37 Pulse Ox 93 04/23/18 11:00 Constitutional: + ill appearing and + overweight; no acute distress ENMT: Ears: no hearing impairment Neck: normal visual inspection and trachea midline Respiratory: normal respiratory effort, lungs clear to auscultation Auscultation: + diminished lung sounds Cardiovascular: RRR, no murmur, no edema Gastrointestinal (Abdomen): normal bowel sounds, soft, nontender, no hepatosplenomegaly Musculoskeletal: general deconditioning Skin: + pallor Neurologic: awake (slightly drowsy) Psychiatric: Orientation: oriented to person, oriented to place and oriented to time Affect: euthymic affect Time Spent Midlevel 50 minutes with >50% of time spent at bedside with patient and hospitalist physicians discussing condition, plan of care and goals.
--- NOTE | 2018-04-23 13:17 | Pharmacy Report ---
Pharmacy Glycemic Short Note 2 - Date of Service April 23, 2018 - Glycemic Short BSG Results (Last 24 hours): 04/22/18 04/22/18 04/22/18 17:33 19:57 23:41 Glucose POC Glucose 240 H 190 H 173 H 04/23/18 04/23/18 04/23/18 03:57 06:02 08:20 Glucose 167 H POC Glucose 146 H 166 H ASSESSMENT: * Ms. Thurman's BSGs over the previous 24hrs have started to normalize. 240-190-173 -146-166mg/dL. She required 53units of insulin yesterday. * Spoke with nursing, she didnt eat anything for lunch. PLAN FOR INPATIENT GLYCEMIC CONTROL: * Basal insulin * Lantus scale SQ BID * BSGs <140mg/dL give 8 units * BSGs >/=140mg/dL give 14 units * Bolus insulin * NovoLog per scale ACHS or Q6hrs while NPO * Goal Range: Low 120 mg/dL - High 150 mg/dL * Correction Factor: 25 mg/dL/unit * Nutritional / Prandial insulin per carb ratio of 1 unit per 8 grams CHO consumed
--- NOTE | 2018-04-23 15:58 | Family Medicine Progress Note ---
Date of Service April 23, 2018 Assessment & Plan (1) Diverticulitis large intestine: Ms. Brittney Thurman is a 83 year old woman with a PMH significant for colon cancer with liver mets who presents for acute diverticulitis Diverticulitis CT in ER showing diverticulitis as well as colo-vaginal fistula. Currently on aztreonam, daptomycin, and flagyl White count as high as 35 now down to 27 Will continue with IV antibiotics treatment for now. Ventricular Tachycardia Patient had several brief episodes of V tach in ER Currently on amiodarone 360 mg IV Esophageal Dysmotility Has been unable to keep anything down Consulted speech therapy and they recommended she's not able to swallow even clear liquids. With worsening esophageal function and inability to keep medication or food down will need to have discussion about goals of care and ongoing management of feeding and medication administration Family meeting with palliative care and case management scheduled for Thursday On Lactated Ringers 75 ml/hr to help supplement lack of fluid intake. Gaston-Vaginal Fistula Gaston vaginal fistula confirmed on CT No way to treat without surgical procedure which patient does not wish to undergo. Future infections are bound to occur, family and patient aware of this and appear to be leaning towards conservative management/hospice care. Colon Cancer Patient was determined to be too sick for further chemotherapy treatment. Goals of care discussion scheduled for Thursday with palliative care Hospice care candidate (2) Fistula of vagina to large intestine: (3) V tach: (4) Esophageal dysmotility: (5) Colon cancer metastasized to liver: (6) DVT prophylaxis: Supervising Physician Co-Signing Physician Notes Attending Note I saw the patient with Dr. Gonzalez and confirmed zurita portions of the history and exam. I agree with the above impression and plan. I also discussed the case with the palliative care team. Sepsis in the setting of diverticulitis, colon CA, and colovaginal fistula Symptomatic improvement on broad spectrum coverage, although later in the day with mild hypotension, tachycardia, and episode of fever Trial of 1/2 L bolus with reassesment later this evening Repeat blood cultures CXR now Nonsustained episodic ventricular tachycardia continue amiodarone presently Esophageal dysmotility w/ h/o Schatzki's ring failed S/S evaluation This has progressed over the last month to the point where even liquids are problematic Previous discussions indicate that patient and family are leaning away from feeding tube; and this in the setting of her other illnesses would suggest a more palliative/comfort care approach. Appreciate palliative consultation - will need to re-address goals of care following this consultation and the patient's clinical course over the next 12-24 hours. Subjective Ms Thurman is resting comfortably this morning, pain is well controlled. She is not able to swallow food and drink and she is feeling more somnolent today. Constitutional: + fatigue and + weakness; no fever, no chills and no body aches Gastrointestinal: + abdominal pain, + vomiting and + change in stools (mucus only) Physical Exam 2 Vital Signs (Past 24 Hours): Last Vital Signs Temp 36.7 C 04/23/18 11:00 Pulse 73 04/23/18 11:00 Resp 18 04/23/18 11:00 BP 97/66 L 04/23/18 11:37 Pulse Ox 93 04/23/18 11:00 Constitutional: + ill appearing, + well hydrated, + frail appearing and comfortable; no altered mental status Respiratory: normal respiratory effort, lungs clear to auscultation Cardiovascular: Rate/Rhythm: regular rate and regular rhythm Gastrointestinal (Abdomen): Percussion/Palpation: + abdomen tender (umbilical tenderness and llq tenderness), + guarding and abdomen soft; abdomen not rigid Psychiatric: Affect: euthymic affect Thought Process: clear/coherent thought process _ (1) Diverticulitis large intestine Diverticulitis bleeding: without bleeding Diverticulitis complication: unspecified complication status Qualified Code(s): K57.32 - Diverticulitis of large intestine without perforation or abscess without bleeding
[2018-04-23] MEDS ORDERED: SODIUM CHLORIDE 0.9% 1000ML 500 ML IV ONE (19:15)
--- NOTE | 2018-04-23 20:26 | XRay Report ---
SINGLE VIEW CHEST CLINICAL HISTORY: Fever. Dyspnea. FINDINGS: An AP, portable, upright chest radiograph is compared to study dated 04/21/2018. The examinat ion is significantly degraded by portable technique and patient rotation. A left internal jugular ce ntral venous infusion port is unchanged in position. The heart is mildly enlarged and there is athero sclerotic calcification of the thoracic aorta. The pulmonary vasculature is noncongested. The mitral annulus is densely calcified. There are low lung volumes with elevation right hemidiaphragm. Patchy a irspace consolidation is seen at the left lung base. Small pleural effusions are suspected. No pneumo thorax is seen. The skeletal structures are osteopenic. The bony thorax is grossly intact. Arthritic change is noted in the shoulders and thoracic spine. IMPRESSION: 1. There is patchy airspace consolidation at the left lung base. The appearance suggests pneumonia/as piration pneumonitis. Clinical correlation will be required and radiographic follow-up to resolution is recommended. 2. Suspect small pleural effusions. 3. Mild cardiac enlargement without radiographic evidence of congestive failure. Electronically signed by: Joe Love M.D. 04/23/2018 8:25 PM
[2018-04-23] MEDS ORDERED: LEVOFLOXACIN/D5W 750 MG/150 ML BAG IV SCH (22:00)
[2018-04-24] MEDS: DAPTOmycin 350 MG in SYRINGE 0 ML IV SCH (00:15)
[2018-04-24] MEDS ORDERED: MoRPHine SULFATE 2 MG/ML CARP IV STA (00:26)
[2018-04-24] MEDS: AZTREONAM 2,000 MG in DEXTROSE 5% 100 ML IV SCH ×3 (00:30→19:00)
[2018-04-24] MEDS: HEPARIN 100 UNIT/ML 5ML FLUSH FLUSH SCH (00:31)
--- NOTE | 2018-04-24 00:52 | Progress Note ---
Date of Service April 24, 2018 Subjective Pt was reported to be hypotensive to 89/63 and febrile to 38.1 at 1600. Primary care team ordered 500 IVF bolus and CXR. BP improved to 93/61 HR was 67 post bolus. CXR was concerning for pneumonia LLL. Abx coverage was broadened and she was started on levaquin. Pt's BP deteriorated again at 23:38 84/55 and HR was 97. She also required 2L of O2 and was sob. Pt was examined and further care discussed with daughter. Another fluid bolus was discussed but daughter preferred to make her more comfortable as she appeared to be having worsening sob and requested some morphine. Daughter was made aware that morphine may further deteriorate BP. Pt's daughter would like to make her more comfortable and aware of her poor prognosis per previous discussions with providers. While pt was being examined she also choked on an ice chip and started vomiting. Physical Exam 2 Vital Signs (Past 24 Hours): Last Vital Signs Temp 36.6 C 04/23/18 23:38 Pulse 97 H 04/23/18 23:38 Resp 18 04/23/18 23:38 BP 84/55 L 04/23/18 23:38 Pulse Ox 97 04/23/18 23:38 Physical Exam: General: In mild distress CV: mildly tachycardic with regular rhythm Pulm: diminished breath sounds no crackles or wheezing appreciated Extremities: cold hands and feet
[2018-04-24] MEDS: LACTATED RINGER'S 1,000 ML IV SCH ×2 (00:54→10:51)
[2018-04-24] MEDS: metroNIDAZOLE 500 MG/100 ML BAG IV SCH ×3 (03:39→21:10)
[2018-04-24 06:17] LABS: Basophils # (auto) 0.02 K/uL (0-0.2); Basophils % (auto) 0.1 %; Hematocrit (blood only) 39.7 % (37-47); Hemoglobin 12.7 g/dL (12.0-16.0); Immature Granulocytes # (auto) 0.22 K/uL (0.00-0.02); Lymphocytes # (auto) 2.31 K/uL (1.2-3.4); Mean Corpuscular Volume 82.4 fL (80-100); Mean Platelet Volume 10.7 fL (7.4-10.4); Monocytes # (auto) 1.21 K/uL (0.11-0.59); Monocytes % (auto) 5.3 %; Neutrophils # (auto) 19.28 K/uL (1.4-6.5); Neutrophils % (auto) 83.6 %; Platelet Count 167 K/uL (130-400); RDW Coefficient of Variation 20.4 % (11.5-14.5); RDW Standard Deviation 59.7 fL (36.4-46.3); Red Blood Count 4.82 M/uL (4.2-5.4); White Blood Count 23.04 K/uL (4.8-10.8)
[2018-04-24 06:36] LABS: Anisocytosis Present; Echinocytes 2+; Toxic Vacuolation 1+
[2018-04-24 06:50] LABS: Calcium 7.4 mg/dl (8.5-10.1); Creatinine Clr Calc Pharmacy 18.5 ml/min; Est GFR (African American) 20.1; Est GFR (Non-African American) 17.3; Potassium 3.9 mmol/L (3.5-5.1)
--- NOTE | 2018-04-24 08:00 | Family Medicine Progress Note ---
Date of Service April 24, 2018 Assessment & Plan (1) Diverticulitis large intestine: *PT is DNR no pressors, intubation, or ICU. Family is sensitive and requested we not discuss until meeting Thursday* Ms. Brittney Thurman is a 83 year old woman with a PMH significant for colon cancer with liver mets who presents for acute diverticulitis. Plan is medical management through the weekend and reassess on Thursday. Diverticulitis CT in ER showing diverticulitis as well as colo-vaginal fistula. Currently on aztreonam, daptomycin, and flagyl White count as high as 35 now down to 22 today Will continue with IV antibiotics treatment for now. clinically improving Severe Sepsis Meets SIRS criteria (Tachy, Elevated WBC, RR) + Source of infection (Pulmonary/ Diverticulitis) + Hypotension + not very responsive to fluids = Potential Sepetic Shock Gentle IVF bolus as need for hypotension 4x abx therapy levaquin, aztreonam, daptomycin, and flagyl Vitals Q4H cx show NGTD Pneumonia Pt had positive xray for pneumonia and was having recurrent hypotensive episodes Empiric levaquin therapy Ventricular Tachycardia Patient had several brief episodes of V tach in ER Currently on amiodarone 360 mg IV Esophageal Dysmotility Has been unable to keep anything down Consulted speech therapy and they recommended she's not able to swallow even clear liquids. With worsening esophageal function and inability to keep medication or food down will need to have discussion about goals of care and ongoing management of feeding and medication administration Family meeting with palliative care and case management scheduled for Thursday On Lactated Ringers 75 ml/hr to help supplement lack of fluid intake. 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 Future infections are bound to occur, family and patient aware of this and appear to be leaning towards conservative management/hospice care. Colon Cancer Patient was determined to be too sick for further chemotherapy treatment. Goals of care discussion scheduled for Thursday with palliative care Hospice care candidate DNR FENA: anything tolerated DVT PPX Eliquis DISPO Likely Hospice Supervising Physician Co-Signing Physician Notes Attending Note I saw the patient with Dr. Cruz and confirmed zurita portions of the history and exam. I agree with the above impression and plan. Upon examination the patient is sleeping; her and son are at bedside. They report that she was awake for most of the morning; it is their feeling that overall she looks better than she did last evening. Upon examination, she is sleeping and does not awake with my examination Blood pressure is improved with a systolic in the 110s. Hands -which are noted to be very cold yesterday -are warm, with strong radial pulses Heart is regular, auscultated rate in the 90s Extremities with slight edema, bilateral. Sepsis in the setting of diverticulitis, colon CA, and colovaginal fistula Suspect aspiration pneumonia Initial symptomatic improvement on broad spectrum coverage, although later in the day with mild hypotension, tachycardia, and episode of fever and evidence of aspiration The patient's hemodynamics responded to a 500 cc bolus of normal saline Levaquin was added overnight to her antibiotic regimen The patient is incontinent of urine so it is difficult to determine her fluid balance Unfortunately she is probably slightly dry but third spacing the fluid she has received Nursing will ask the patient if she would like a Fernando catheter when she awakens; this will help quantify her output as well as prevent skin breakdown secondary to her incontinence If indicated, small boluses of 500 cc may be necessary and reasonable though need to be wary of third spacing and fluid overload Nonsustained episodic ventricular tachycardia continue amiodarone presently Esophageal dysmotility w/ h/o Schatzki's ring failed S/S evaluation This has progressed over the last month to the point where even liquids are problematic Current plan is discussed with the family is to continue current medical therapy and to a family meeting is held with palliative service on Thursday. The patient is a DO NOT RESUSCITATE and they do not wish to escalate care in terms of pressor agents should they be required. Subjective Pt sitting up in bed this morning retching during my exam / to esophageal dysmotility. Had an aspiration/hypotensive episode overnight treated with fluids , pt was started on levaquin for pneumonia visualized on xray. This morning family at bedside reports pt has no acute complaints. They are onboard with patients code status. Prognosis for the patient is not great because she is unable to obtain nutrition, sleeping and voiding well. Plan is for medical management throughout the weekend with a goals of care discussion on Thursday. Pt has had no fevers, chills, Physical Exam 2 Vital Signs (Past 24 Hours): Last Vital Signs Temp 37.3 C 04/24/18 07:36 Pulse 108 H 04/24/18 07:36 Resp 20 04/24/18 07:36 BP 103/64 04/24/18 07:36 Pulse Ox 96 04/24/18 07:36 Constitutional: + ill appearing, + well hydrated, + frail appearing, comfortable and + overweight; no acute distress and no altered mental status ENMT: Ears: no hearing impairment Neck: normal visual inspection and trachea midline Respiratory: normal respiratory effort, lungs clear to auscultation Auscultation: + diminished lung sounds Cardiovascular: RRR, no murmur, no edema Rate/Rhythm: regular rate and regular rhythm Gastrointestinal (Abdomen): normal bowel sounds, soft, nontender, no hepatosplenomegaly Percussion/Palpation: + abdomen tender (umbilical tenderness and llq tenderness), + guarding and abdomen soft; abdomen not rigid Skin: + pallor Neurologic: awake (slightly drowsy) Psychiatric: Orientation: oriented to person, oriented to place and oriented to time Affect: euthymic affect Thought Process: clear/coherent thought process Results & Data Laboratory Results 04/24/18 04/24/18 04/24/18 Range/Units 07:20 05:53 05:53 WBC 23.04 H (4.8-10.8) K/uL RBC 4.82 (4.2-5.4) M/uL Hgb 12.7 (12.0-16.0) g/dL Hct 39.7 (37-47) % MCV 82.4 (80-100) fL MCH 26.3 (25-34) pg MCHC 32.0 (32-36) g/dL RDW Std Deviation 59.7 H (36.4-46.3) fL RDW Coeff of Bryanna 20.4 H (11.5-14.5) % Plt Count 167 (130-400) K/uL MPV 10.7 H (7.4-10.4) fL Immature Gran % (Auto) 1.0 % Neut % (Auto) 83.6 % Lymph % (Auto) 10.0 % [place] % (Auto) 5.3 % Eos % (Auto) 0.0 % Baso % (Auto) 0.1 % Immature Gran # (Auto) 0.22 H (0.00-0.02) K/uL Neut # (Auto) 19.28 H (1.4-6.5) K/uL Lymph # (Auto) 2.31 (1.2-3.4) K/uL [place] # (Auto) 1.21 H (0.11-0.59) K/uL Eos # (Auto) 0.00 (0-0.5) K/uL Baso # (Auto) 0.02 (0-0.2) K/uL Toxic Vacuolation 1+ Anisocytosis Present Echinocytes 2+ Sodium 135 L (136-145) mmol/L Potassium 3.9 (3.5-5.1) mmol/L Chloride 100 (98-107) mmol/L Carbon Dioxide 25 (21-32) mmol/L Anion Gap 10.0 (3-11) BUN 39 H D (7-18) mg/dl Creatinine 2.47 H D (0.6-1.2) mg/dl Est Cr Clr Drug Dosing 18.5 ml/min Est GFR ( Amer) 20.1 Est GFR (Non-Af Amer) 17.3 BUN/Creatinine Ratio 16.0 (10-20) Glucose 158 H (70-99) mg/dl POC Glucose 156 H (70-99) Calcium 7.4 L (8.5-10.1) mg/dl 04/23/18 04/23/18 04/23/18 Range/Units 23:44 20:26 16:29 WBC (4.8-10.8) K/uL RBC (4.2-5.4) M/uL Hgb (12.0-16.0) g/dL Hct (37-47) % MCV (80-100) fL MCH (25-34) pg MCHC (32-36) g/dL RDW Std Deviation (36.4-46.3) fL RDW Coeff of Bryanna (11.5-14.5) % Plt Count (130-400) K/uL MPV (7.4-10.4) fL Immature Gran % (Auto) % Neut % (Auto) % Lymph % (Auto) % [place] % (Auto) % Eos % (Auto) % Baso % (Auto) % Immature Gran # (Auto) (0.00-0.02) K/uL Neut # (Auto) (1.4-6.5) K/uL Lymph # (Auto) (1.2-3.4) K/uL [place] # (Auto) (0.11-0.59) K/uL Eos # (Auto) (0-0.5) K/uL Baso # (Auto) (0-0.2) K/uL Toxic Vacuolation Anisocytosis Echinocytes Sodium (136-145) mmol/L Potassium (3.5-5.1) mmol/L Chloride (98-107) mmol/L Carbon Dioxide (21-32) mmol/L Anion Gap (3-11) BUN (7-18) mg/dl Creatinine (0.6-1.2) mg/dl Est Cr Clr Drug Dosing ml/min Est GFR ( Amer) Est GFR (Non-Af Amer) BUN/Creatinine Ratio (10-20) Glucose (70-99) mg/dl POC Glucose 147 H 120 H 127 H (70-99) Calcium (8.5-10.1) mg/dl 04/23/18 04/23/18 Range/Units 14:33 11:18 WBC (4.8-10.8) K/uL RBC (4.2-5.4) M/uL Hgb (12.0-16.0) g/dL Hct (37-47) % MCV (80-100) fL MCH (25-34) pg MCHC (32-36) g/dL RDW Std Deviation (36.4-46.3) fL RDW Coeff of Bryanna (11.5-14.5) % Plt Count (130-400) K/uL MPV (7.4-10.4) fL Immature Gran % (Auto) % Neut % (Auto) % Lymph % (Auto) % [place] % (Auto) % Eos % (Auto) % Baso % (Auto) % Immature Gran # (Auto) (0.00-0.02) K/uL Neut # (Auto) (1.4-6.5) K/uL Lymph # (Auto) (1.2-3.4) K/uL [place] # (Auto) (0.11-0.59) K/uL Eos # (Auto) (0-0.5) K/uL Baso # (Auto) (0-0.2) K/uL Toxic Vacuolation Anisocytosis Echinocytes Sodium (136-145) mmol/L Potassium (3.5-5.1) mmol/L Chloride (98-107) mmol/L Carbon Dioxide (21-32) mmol/L Anion Gap (3-11) BUN (7-18) mg/dl Creatinine (0.6-1.2) mg/dl Est Cr Clr Drug Dosing ml/min Est GFR ( Amer) Est GFR (Non-Af Amer) BUN/Creatinine Ratio (10-20) Glucose (70-99) mg/dl POC Glucose 134 H 162 H (70-99) Calcium (8.5-10.1) mg/dl Medications Administered Current Inpatient Medications Acetaminophen (Tylenol) 650 mg PO Q6H PRN PRN Reason: Pain, Moderate Stop: 05/22/18 01:12 Apixaban (Eliquis) 5 mg PO BID [facility] Stop: 05/22/18 08:59 Last Admin: 04/24/18 08:15 Dose: 5 mg Aspirin (Ecotrin) 81 mg PO QAM [facility] Stop: 05/22/18 08:59 Last Admin: 04/24/18 08:18 Dose: 81 mg Aztreonam (Aztreonam Consult Active) 1 ea N/A UD PRN PRN Reason: Consult Stop: 05/22/18 04:37 Baclofen (Lioresal) 10 mg PO BID [facility] Stop: 05/22/18 08:59 Last Admin: 04/24/18 08:15 Dose: 10 mg Dextrose (Dextrose 50%) 25 - 50 ml IV UD PRN; Protocol PRN Reason: Hypoglycemia Protocol Stop: 05/22/18 01:47 Furosemide (Lasix) 40 mg PO QAM [facility] Stop: 05/22/18 08:59 Last Admin: 04/24/18 08:16 Dose: 40 mg Glucagon (Glucagen) 1 mg IM UD PRN; Protocol PRN Reason: Hypoglycemia Protocol Stop: 05/22/18 01:47 Glucose (Glucose 40%) 15 - 30 gm PO UD PRN; Protocol PRN Reason: Hypoglycemia Protocol Stop: 05/22/18 01:47 Glucose (Dex4 Glucose) 4 - 8 tabs PO UD PRN; Protocol PRN Reason: Hypoglycemia Protocol Stop: 05/22/18 01:47 Heparin Sodium (Porcine) (Heparin Sod 100 Unit/Ml Flush) 5 ml FLUSH PRN [facility] Stop: 05/22/18 23:44 Last Admin: 04/24/18 00:31 Dose: 5 ml Amiodarone HCl/Dextrose (Nexterone / D5w) 360 mg in 200 mls @ 16.667 mls/hr IV .Q12H [facility] Stop: 05/21/18 22:29 Last Admin: 04/23/18 22:46 Dose: 0.5 mg/min, 16.7 mls/hr Metronidazole (Flagyl) 500 mg in 100 mls @ 100 mls/hr IV Q8H [facility] Stop: 05/02/18 03:59 Last Infusion: 04/24/18 04:35 Dose: Infused Aztreonam 2,000 mg/ Dextrose 110 mls @ 110 mls/hr IV Q8H [facility]; Protocol Stop: 05/02/18 05:59 Last Admin: 04/24/18 06:27 Dose: 100 mls/hr Daptomycin 350 mg/ Syringe 7 mls @ 3.5 mls/min IV Q24H [facility]; Protocol Stop: 05/01/18 21:59 Last Admin: 04/24/18 00:15 Dose: 3.5 mls/min Lactated Ringer's (Lr) 1,000 mls @ 75 mls/hr IV .[id number] [facility] Stop: 05/22/18 17:59 Last Admin: 04/24/18 00:54 Dose: 75 mls/hr Levofloxacin/Dextrose (Levaquin/D5w) 750 mg in 150 mls @ 100 mls/hr IV Q48H [facility] ; Protocol Stop: 04/30/18 21:59 Last Infusion: 04/24/18 00:45 Dose: Infused Insulin Aspart (Novolog Flexpen) 0 units SC ACHS [facility] Stop: 05/22/18 01:29 Last Admin: 04/24/18 08:18 Dose: Not Given Insulin Glargine (Lantus Solostar Pen) 0 units SC BID [facility]; Protocol Stop: 05/22/18 20:59 Last Admin: 04/24/18 08:17 Dose: 14 units Metoprolol Tartrate (Lopressor) 25 mg PO BID [facility] Stop: 05/22/18 08:59 Last Admin: 04/24/18 08:15 Dose: 25 mg Miscellaneous (Carbohydrates For Hypoglycemia) 15 - 30 gm PO UD PRN PRN Reason: Hypoglycemia Treatment Stop: 05/22/18 01:47 Miscellaneous Information (Consult) 1 ea N/A UD PRN PRN Reason: Consult Stop: 05/22/18 04:37 Miscellaneous Information (Consult Glycemic Management Pharmacy) 1 ea N/A UD PRN PRN Reason: Consult Stop: 05/22/18 01:19 Morphine Sulfate (Morphine Sulfate) 4 mg IV Q4H PRN PRN Reason: Pain Stop: 05/06/18 01:12 Last Admin: 04/23/18 11:53 Dose: 4 mg Multivitamins/Minerals (Multivitamin W/ Minerals) 1 tab PO DAILY [facility] Stop: 05/22/18 08:59 Last Admin: 04/24/18 08:16 Dose: 1 tab Ondansetron HCl (Zofran) 4 mg IV Q6H PRN PRN Reason: Nausea Stop: 05/22/18 01:12 Last Admin: 04/23/18 11:52 Dose: 4 mg Pantoprazole Sodium (Protonix) 40 mg PO DAILY [facility] Stop: 05/22/18 08:59 Last Admin: 04/24/18 08:16 Dose: 40 mg Spironolactone (Aldactone) 50 mg PO DAILY [facility] Stop: 05/22/18 08:59 Last Admin: 04/24/18 08:18 Dose: 50 mg Resident Activity Tracking Resident Involvement: Resident Care Provided Care Provided: Adult [facility] Medicine _ (1) Diverticulitis large intestine Diverticulitis bleeding: without bleeding Diverticulitis complication: unspecified complication status Qualified Code(s): K57.32 - Diverticulitis of large intestine without perforation or abscess without bleeding
[2018-04-24] MEDS: METOPROLOL TARTRATE 25 MG TAB PO SCH ×2 (08:15→20:54)
[2018-04-24] MEDS: APIXABAN 5 MG TABLET PO SCH ×2 (08:15→20:53)
[2018-04-24] MEDS: BACLOFEN 10 MG TAB PO SCH ×2 (08:15→20:53)
[2018-04-24] MEDS: PANTOprazole 40 MG TAB PO SCH (08:16)
[2018-04-24] MEDS: CEROVITE ADV FORMULA TAB PO SCH (08:16)
[2018-04-24] MEDS: FUROSEMIDE 40 MG TAB PO SCH (08:16)
[2018-04-24] MEDS: INSULIN GLARGINE SOLOSTAR 100 UNITS/ML 3 ML PEN SC SCH (08:17)
[2018-04-24] MEDS: ASPIRIN 81 MG ECTAB PO SCH (08:18)
[2018-04-24] MEDS: SPIRONOLACTONE 25 MG TAB PO SCH (08:18)
[2018-04-24] MEDS: INSULIN ASPART 100 UNITS/ML 3 ML PEN SC SCH ×4 (08:18→21:11)
[2018-04-24] MEDS: AMIODARONE / D5W 360 MG/200 ML BAG IV SCH ×2 (10:51→21:15)
[2018-04-24] MEDS ORDERED: MoRPHine SULFATE 4 MG/ML 1 ML CARP\\VIAL IV PRN (10:51)
--- NOTE | 2018-04-24 13:59 | Pharmacy Report ---
Pharmacy Glycemic Short Note 2 - Date of Service April 24, 2018 - Glycemic Short BSG Results (Last 24 hours): 04/23/18 04/23/18 04/23/18 11:18 14:33 16:29 Glucose POC Glucose 162 H 134 H 127 H 04/23/18 04/23/18 04/24/18 20:26 23:44 05:53 Glucose 158 H POC Glucose 120 H 147 H 04/24/18 04/24/18 07:20 11:13 Glucose POC Glucose 156 H 151 H ASSESSMENT: * Ms. Thurman's BSGs at goal, she did refuse evening dose of Lantus yesterday. She required 16 units of insulin yesterday, significantly reduced from 1/ - 53 units. * Will change Lantus to once daily as patient is euglycemic with lower dose at this time. PLAN FOR INPATIENT GLYCEMIC CONTROL: * Basal insulin - CHANGE to QAM * Lantus scale SQ AM * BSGs <110mg/dL give 8 units * BSGs >/=110mg/dL give 14 units * Bolus insulin * NovoLog per scale ACHS or Q6hrs while NPO * Goal Range: Low 120 mg/dL - High 150 mg/dL * Correction Factor: 25 mg/dL/unit * Nutritional / Prandial insulin per carb ratio of 1 unit per 8 grams CHO consumed
[2018-04-24] MEDS: AZTREONAM 1,000 MG in DEXTROSE 5% 100 ML IV SCH (14:40)
[2018-04-24] MEDS: MoRPHine SULFATE 4 MG/ML 1 ML CARP\\VIAL IV PRN (18:11)
[2018-04-25] MEDS: AZTREONAM 1,000 MG in DEXTROSE 5% 100 ML IV SCH ×4 (00:14→21:50)
--- NOTE | 2018-04-25 00:17 | Progress Note ---
Date of Service April 24, 2018 About 2350 Received page the patient has had virtually no urine output. Brief chart review: I recall admitting the patient on for diverticulitis, sepsis, hypoxia, and multiple underlying medical issues. In the interim she has had episodes of hypotension and had her antibiotics expanded for PNA. Saw patient at bedside: She appeared to be resting comfortably and did not wake to my exam. Exam: Per nurse, last BP 84/~. HR 90's, irr irr. Anterior superior lung lynch sound clear. Plan: - Her new oliguria/anuria and increasing creatinine is not a good sign. Presently on LR at 75 mL/hr. She seems comfortable and asymptomatic, so will not IVF bolus at this time. - On review of most recent progress note, patient remains DNR and does not wish to be on vasopressors. Will not change any of her overnight meds. The day team may wish to pursue goal reassessment tomorrow (Thursday) vice Thursday. - Unfortunately, appears to be a very poor prognosis. Gaston Villegas MD PGY2 overnight call Physical Exam 2 Vital Signs (Past 24 Hours): Last Vital Signs Temp 36.4 C L 04/24/18 20:00 Pulse 92 H 04/24/18 20:00 Resp 12 04/24/18 20:00 BP 111/73 04/24/18 20:00 Pulse Ox 97 04/24/18 20:00
[2018-04-25] MEDS: HEPARIN 100 UNIT/ML 5ML FLUSH FLUSH SCH ×2 (01:20→23:04)
[2018-04-25] MEDS: metroNIDAZOLE 500 MG/100 ML BAG IV SCH ×3 (04:22→19:41)
[2018-04-25 05:14] LABS: Basophils # (auto) 0.03 K/uL (0-0.2); Basophils % (auto) 0.2 %; Hematocrit (blood only) 42.4 % (37-47); Hemoglobin 13.6 g/dL (12.0-16.0); Immature Granulocytes # (auto) 0.21 K/uL (0.00-0.02); Immature Granulocytes % (auto) 1.2 %; Lymphocytes # (auto) 1.88 K/uL (1.2-3.4); Lymphocytes % (auto) 10.4 %; Mean Corpuscular Hgb Conc 32.1 g/dL (32-36); Mean Corpuscular Volume 81.4 fL (80-100); Mean Platelet Volume 10.7 fL (7.4-10.4); Monocytes # (auto) 0.89 K/uL (0.11-0.59); Monocytes % (auto) 4.9 %; Neutrophils # (auto) 15.02 K/uL (1.4-6.5); Neutrophils % (auto) 83.3 %; Platelet Count 201 K/uL (130-400); RDW Coefficient of Variation 20.4 % (11.5-14.5); RDW Standard Deviation 59.1 fL (36.4-46.3); Red Blood Count 5.21 M/uL (4.2-5.4); White Blood Count 18.03 K/uL (4.8-10.8)
[2018-04-25] MEDS: LACTATED RINGER'S 1,000 ML IV SCH ×2 (05:30→19:40)
[2018-04-25 05:43] LABS: Anisocytosis Present; Echinocytes 1+; Toxic Vacuolation 1+
[2018-04-25 05:47] LABS: BUN Creatinine Ratio 16.3 (10-20); Calcium 7.2 mg/dl (8.5-10.1); Creatinine Clr Calc Pharmacy 14.6 ml/min; Est GFR (African American) 15.1; Est GFR (Non-African American) 13.1; Potassium 3.8 mmol/L (3.5-5.1)
[2018-04-25] MEDS: MoRPHine SULFATE 4 MG/ML 1 ML CARP\\VIAL IV PRN ×2 (05:53→18:12)
[2018-04-25] MEDS: ASPIRIN 81 MG ECTAB PO SCH (08:23)
[2018-04-25] MEDS: SPIRONOLACTONE 25 MG TAB PO SCH (08:23)
[2018-04-25] MEDS: FUROSEMIDE 40 MG TAB PO SCH (08:23)
[2018-04-25] MEDS: APIXABAN 5 MG TABLET PO SCH (08:23)
[2018-04-25] MEDS: METOPROLOL TARTRATE 25 MG TAB PO SCH (08:23)
[2018-04-25] MEDS: BACLOFEN 10 MG TAB PO SCH (08:23)
[2018-04-25] MEDS: CEROVITE ADV FORMULA TAB PO SCH (08:23)
[2018-04-25] MEDS: PANTOprazole 40 MG TAB PO SCH (08:23)
[2018-04-25] MEDS: INSULIN ASPART 100 UNITS/ML 3 ML PEN SC SCH ×4 (08:24→20:48)
[2018-04-25] MEDS: INSULIN GLARGINE SOLOSTAR 100 UNITS/ML 3 ML PEN SC SCH (08:25)
[2018-04-25] MEDS: AMIODARONE / D5W 360 MG/200 ML BAG IV SCH ×2 (09:51→21:49)
--- NOTE | 2018-04-25 11:27 | Family Medicine Progress Note ---
Date of Service April 25, 2018 Assessment & Plan (1) Diverticulitis large intestine: *PT is DNR no pressors, intubation, or ICU. Family is sensitive and requested we not discuss until meeting Thursday* Ms. Brittney Thurman is a 83 year old woman with a PMH significant for colon cancer with liver mets who presents for acute diverticulitis. Plan is medical management through the weekend and reassess on Thursday. 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 Currently on aztreonam, daptomycin, and flagyl White count as high as 35 now down to 18 today Will continue with IV antibiotics treatment for now and reassess s/p pallative meeting Thursday clinically improving Severe Sepsis Meets SIRS criteria (Tachy, Elevated WBC, RR) + Source of infection (Pulmonary/ Diverticulitis) + Hypotension + not very responsive to fluids = Potential Sepetic Shock Gentle IVF bolus as need for hypotension 4x abx therapy levaquin, aztreonam, daptomycin, and flagyl Vitals Q4H cx show NGTD BETSY Cr now 3.12 up from 1.2 on 04/23, likely part of the dying process -CXR this am was clear will attempt very gentle hydration and repeat bmp this evening to see if we can regain some kidney function Pneumonia Pt had positive xray for pneumonia and was having recurrent hypotensive episodes Empiric levaquin therapy Ventricular Tachycardia Patient had several brief episodes of V tach in ER Currently on amiodarone 360 mg IV reassess s/p goals of care meeting on Thursday Esophageal Dysmotility Has been unable to keep anything down Consulted speech therapy and they recommended she's not able to swallow even clear liquids. With worsening esophageal function and inability to keep medication or food down will need to have discussion about goals of care and ongoing management of feeding and medication administration Family meeting with palliative care and case management scheduled for Thursday On Lactated Ringers 75 ml/hr to help supplement lack of fluid intake. 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 Future infections are bound to occur, family and patient aware of this and appear to be leaning towards conservative management/hospice care. Colon Cancer Patient was determined to be too sick for further chemotherapy treatment. Goals of care discussion scheduled for Thursday with palliative care Hospice care candidate DNR FENA: anything tolerated DVT PPX Eliquis DISPO Likely Hospice Supervising Physician Co-Signing Physician Notes Attending Note I saw the patient with Dr. Cruz and confirmed zurita portions of the history and exam. I agree with the above impression and plan. Upon examination, the patient is awake and much more alert than she was yesterday. She is fairly oriented. She denies any localized pain. 1 of her daughters is bedside. Her blood pressures remained between 90 and 100 mmHg systolic She has been afebrile since April 23 when Levaquin was added. Her white blood cell count is slightly improved; her creatinine has worsened and she has had minimal urine output. Chest x-ray taken this morning does not show any overt failure; no obvious infiltrates. Sepsis in the setting of diverticulitis, colon CA, and colovaginal fistula Acute renal failure She is slightly improved this morning in terms of her awakeness and alertness, although her prognosis remains extremely poor. Plan remains the same with continued care but no escalation of therapy in terms of pressor agents should they be required. Family is targeting a family meeting to be held with palliative services tomorrow. Judging from the chest x-ray and lack of edema on exam we could trial small boluses of fluids to see if there is any renal recovery though I think this is unlikely Nonsustained episodic ventricular tachycardia continue amiodarone presently Esophageal dysmotility w/ h/o Schatzki's ring failed S/S evaluation This has progressed over the last month to the point where even liquids are problematic Current plan is discussed with the family is to continue current medical therapy and to a family meeting is held with palliative service on Thursday. The family and patient has deferred any types of feeding tube whether it be Dobbhoff or more permanent PEG tube. Subjective Patient was laying in her bed in the process of obtaining a CXR when we arrived. Pt was alert and oriented this morning, per the patients daughter overnight the patient kept repeating I had enough and would go in and out of consciousness. Numerous relatives are coming to visit the patient today. Patient has produced almost no urine since cool is placed and cr has been trending up. Plan is still to push through until palliative consult tomorrow. Patient states pain is well controlled. Physical Exam 2 Vital Signs (Past 24 Hours): Last Vital Signs Temp 36.8 C 04/25/18 07:58 Pulse 111 H 04/25/18 08:00 Resp 18 04/25/18 07:58 BP 90/54 L 04/25/18 07:58 Pulse Ox 95 04/25/18 07:58 Constitutional: + ill appearing, + well hydrated, + frail appearing, comfortable and + overweight; no acute distress and no altered mental status ENMT: Ears: no hearing impairment Neck: normal visual inspection and trachea midline Respiratory: normal respiratory effort, lungs clear to auscultation Auscultation: + diminished lung sounds Cardiovascular: RRR, no murmur, no edema Rate/Rhythm: regular rate and regular rhythm Gastrointestinal (Abdomen): normal bowel sounds, soft, nontender, no hepatosplenomegaly Percussion/Palpation: + abdomen tender (umbilical tenderness and llq tenderness), + guarding and abdomen soft; abdomen not rigid Skin: + pallor Neurologic: awake (slightly drowsy) Psychiatric: Orientation: oriented to person, oriented to place and oriented to time Affect: euthymic affect Thought Process: clear/coherent thought process Results & Data Laboratory Results 04/25/18 04/25/18 04/25/18 Range/Units 07:51 04:52 04:52 WBC 18.03 H (4.8-10.8) K/uL RBC 5.21 (4.2-5.4) M/uL Hgb 13.6 (12.0-16.0) g/dL Hct 42.4 (37-47) % MCV 81.4 (80-100) fL MCH 26.1 (25-34) pg MCHC 32.1 (32-36) g/dL RDW Std Deviation 59.1 H (36.4-46.3) fL RDW Coeff of Bryanna 20.4 H (11.5-14.5) % Plt Count 201 (130-400) K/uL MPV 10.7 H (7.4-10.4) fL Immature Gran % (Auto) 1.2 % Neut % (Auto) 83.3 % Lymph % (Auto) 10.4 % Stanislaus % (Auto) 4.9 % Eos % (Auto) 0.0 % Baso % (Auto) 0.2 % Immature Gran # (Auto) 0.21 H (0.00-0.02) K/uL Neut # (Auto) 15.02 H (1.4-6.5) K/uL Lymph # (Auto) 1.88 (1.2-3.4) K/uL Stan[place]aus # (Auto) 0.89 H (0.11-0.59) K/uL Eos # (Auto) 0.00 (0-0.5) K/uL Baso # (Auto) 0.03 (0-0.2) K/uL Toxic Vacuolation 1+ Anisocytosis Present Echinocytes 1+ Sodium 133 L (136-145) mmol/L Potassium 3.8 (3.5-5.1) mmol/L Chloride 98 (98-107) mmol/L Carbon Dioxide 22 (21-32) mmol/L Anion Gap 13.0 H (3-11) BUN 51 H (7-18) mg/dl Creatinine 3.12 H D (0.6-1.2) mg/dl Est Cr Clr Drug Dosing 14.6 ml/min Est GFR ( Amer) 15.1 Est GFR (Non-Af Amer) 13.1 BUN/Creatinine Ratio 16.3 (10-20) Glucose 192 H (70-99) mg/dl POC Glucose 172 H (70-99) Calcium 7.2 L (8.5-10.1) mg/dl 04/24/18 04/24/18 04/24/18 Range/Units 20:17 16:31 11:13 WBC (4.8-10.8) K/uL RBC (4.2-5.4) M/uL Hgb (12.0-16.0) g/dL Hct (37-47) % MCV (80-100) fL MCH (25-34) pg MCHC (32-36) g/dL RDW Std Deviation (36.4-46.3) fL RDW Coeff of Bryanna (11.5-14.5) % Plt Count (130-400) K/uL MPV (7.4-10.4) fL Immature Gran % (Auto) % Neut % (Auto) % Lymph % (Auto) % Stan[place]aus % (Auto) % Eos % (Auto) % Baso % (Auto) % Immature Gran # (Auto) (0.00-0.02) K/uL Neut # (Auto) (1.4-6.5) K/uL Lymph # (Auto) (1.2-3.4) K/uL Stan[place]aus # (Auto) (0.11-0.59) K/uL Eos # (Auto) (0-0.5) K/uL Baso # (Auto) (0-0.2) K/uL Toxic Vacuolation Anisocytosis Echinocytes Sodium (136-145) mmol/L Potassium (3.5-5.1) mmol/L Chloride (98-107) mmol/L Carbon Dioxide (21-32) mmol/L Anion Gap (3-11) BUN (7-18) mg/dl Creatinine (0.6-1.2) mg/dl Est Cr Clr Drug Dosing ml/min Est GFR ( Amer) Est GFR (Non-Af Amer) BUN/Creatinine Ratio (10-20) Glucose (70-99) mg/dl POC Glucose 155 H 157 H 151 H (70-99) Calcium (8.5-10.1) mg/dl Medications Administered Current Inpatient Medications Acetaminophen (Tylenol) 650 mg PO Q6H PRN PRN Reason: Pain, Moderate Stop: 05/22/18 01:12 Apixaban (Eliquis) 5 mg PO BID [facility] Stop: 05/22/18 08:59 Last Admin: 04/25/18 08:23 Dose: Not Given Aspirin (Ecotrin) 81 mg PO QAM [facility] Stop: 05/22/18 08:59 Last Admin: 04/25/18 08:23 Dose: Not Given Aztreonam (Aztreonam Consult Active) 1 ea N/A UD PRN PRN Reason: Consult Stop: 05/22/18 04:37 Baclofen (Lioresal) 10 mg PO BID [facility] Stop: 05/22/18 08:59 Last Admin: 04/25/18 08:23 Dose: Not Given Dextrose (Dextrose 50%) 25 - 50 ml IV UD PRN; Protocol PRN Reason: Hypoglycemia Protocol Stop: 05/22/18 01:47 Furosemide (Lasix) 40 mg PO QAM [facility] Stop: 05/22/18 08:59 Last Admin: 04/25/18 08:23 Dose: Not Given Glucagon (Glucagen) 1 mg IM UD PRN; Protocol PRN Reason: Hypoglycemia Protocol Stop: 05/22/18 01:47 Glucose (Glucose 40%) 15 - 30 gm PO UD PRN; Protocol PRN Reason: Hypoglycemia Protocol Stop: 05/22/18 01:47 Glucose (Dex4 Glucose) 4 - 8 tabs PO UD PRN; Protocol PRN Reason: Hypoglycemia Protocol Stop: 05/22/18 01:47 Heparin Sodium (Porcine) (Heparin Sod 100 Unit/Ml Flush) 5 ml FLUSH PRN [facility] Stop: 05/22/18 23:44 Last Admin: 04/25/18 01:20 Dose: 5 ml Amiodarone HCl/Dextrose (Nexterone / D5w) 360 mg in 200 mls @ 16.667 mls/hr IV .Q12H [facility] Stop: 05/21/18 22:29 Last Admin: 04/25/18 09:51 Dose: 0.5 mg/min, 16.7 mls/hr Metronidazole (Flagyl) 500 mg in 100 mls @ 100 mls/hr IV Q8H [facility] Stop: 05/02/18 03:59 Last Infusion: 04/25/18 05:25 Dose: Infused Lactated Ringer's (Lr) 1,000 mls @ 75 mls/hr IV .[id number] [facility] Stop: 05/22/18 17:59 Last Admin: 04/25/18 05:30 Dose: 75 mls/hr Levofloxacin/Dextrose (Levaquin/D5w) 750 mg in 150 mls @ 100 mls/hr IV Q48H [facility] ; Protocol Stop: 04/30/18 21:59 Last Infusion: 04/24/18 00:45 Dose: Infused Daptomycin 350 mg/ Syringe 7 mls @ 3.5 mls/min IV Q48H [facility]; Protocol Stop: 05/01/18 21:59 Aztreonam 1,000 mg/ Dextrose 110 mls @ 110 mls/hr IV Q8H [facility]; Protocol Stop: 05/02/18 14:29 Last Infusion: 04/25/18 07:37 Dose: Infused Insulin Aspart (Novolog Flexpen) 0 units SC ACHS [facility] Stop: 05/22/18 01:29 Last Admin: 04/25/18 08:24 Dose: 1 units Insulin Glargine (Lantus Solostar Pen) 0 units SC DAILY [facility]; Protocol Stop: 05/25/18 08:59 Last Admin: 04/25/18 08:25 Dose: 18 units Metoprolol Tartrate (Lopressor) 25 mg PO BID [facility] Stop: 05/22/18 08:59 Last Admin: 04/25/18 08:23 Dose: Not Given Miscellaneous (Carbohydrates For Hypoglycemia) 15 - 30 gm PO UD PRN PRN Reason: Hypoglycemia Treatment Stop: 05/22/18 01:47 Miscellaneous Information (Consult) 1 ea N/A UD PRN PRN Reason: Consult Stop: 05/22/18 04:37 Miscellaneous Information (Consult Glycemic Management Pharmacy) 1 ea N/A UD PRN PRN Reason: Consult Stop: 05/22/18 01:19 Morphine Sulfate (Morphine Sulfate) 2 mg IV Q2H PRN PRN Reason: Pain Stop: 05/08/18 10:50 Last Admin: 04/25/18 05:53 Dose: 2 mg Multivitamins/Minerals (Multivitamin W/ Minerals) 1 tab PO DAILY [facility] Stop: 05/22/18 08:59 Last Admin: 04/25/18 08:23 Dose: Not Given Ondansetron HCl (Zofran) 4 mg IV Q6H PRN PRN Reason: Nausea Stop: 05/22/18 01:12 Last Admin: 04/23/18 11:52 Dose: 4 mg Pantoprazole Sodium (Protonix) 40 mg PO DAILY [facility] Stop: 05/22/18 08:59 Last Admin: 04/25/18 08:23 Dose: Not Given Spironolactone (Aldactone) 50 mg PO DAILY [facility] Stop: 05/22/18 08:59 Last Admin: 04/25/18 08:23 Dose: Not Given Resident Activity Tracking Resident Involvement: Resident Care Provided Care Provided: [facility] _ (1) Diverticulitis large intestine Diverticulitis bleeding: without bleeding Diverticulitis complication: unspecified complication status Qualified Code(s): K57.32 - Diverticulitis of large intestine without perforation or abscess without bleeding
[2018-04-25] MEDS ORDERED: LACTATED RINGER'S 1,000 ML IV SCH (11:45)
--- NOTE | 2018-04-25 12:46 | XRay Report ---
SINGLE VIEW CHEST CLINICAL HISTORY: Dyspnea. FINDINGS: 2 AP, portable, upright chest radiographs are compared to study dated 04/23/2018. The examina tion is degraded by portable technique and patient rotation. A left internal jugular central venous infusion port is unchanged in position. The heart is enlarged and there is atherosclerotic calcificat ion of the thoracic aorta. The pulmonary vasculature is noncongested. There are small pleural effusio ns with bibasilar airspace opacities. There are atelectasis/scarring is again seen in the left lower lung. No pneumothorax is seen. The skeletal structures are osteopenic. The bony thorax is grossly int act. IMPRESSION: 1. Cardiomegaly without radiographic evidence of congestive failure. 2. Small pleural effusions and bibasilar airspace opacities are similar to previous. No enlarging ple ural effusion is identified. Electronically signed by: Joe Love M.D. 04/25/2018 12:45 PM
--- NOTE | 2018-04-25 15:17 | Pharmacy Report ---
Pharmacy Glycemic Short Note 2 - Date of Service April 25, 2018 - Glycemic Short BSG Results (Last 24 hours): 04/24/18 04/24/18 04/25/18 16:31 20:17 04:52 Glucose 192 H POC Glucose 157 H 155 H 04/25/18 04/25/18 07:51 11:24 Glucose POC Glucose 172 H 176 H ASSESSMENT: * Blood sugar mandeep overnight, patient was transitioned to once daily Lantus on , and dose needs to be titrated up. Will increase Lantus at this time. PLAN FOR INPATIENT GLYCEMIC CONTROL: * Basal insulin - increase * Lantus scale SQ AM * BSGs <110mg/dL give 10 units * BSGs >/=110mg/dL give 18 units * Bolus insulin * NovoLog per scale ACHS or Q6hrs while NPO * Goal Range: Low 120 mg/dL - High 150 mg/dL * Correction Factor: 25 mg/dL/unit * Nutritional / Prandial insulin per carb ratio of 1 unit per 8 grams CHO consumed
[2018-04-25 17:29] LABS: Creatinine Clr Calc Pharmacy 13.5 ml/min; Est GFR (African American) 13.5; Est GFR (Non-African American) 11.6
[2018-04-25] MEDS ORDERED: LEVOFLOXACIN/D5W 500 MG/100 ML BAG IV SCH (22:00)
[2018-04-25] MEDS ORDERED: DAPTOmycin 350 MG in SYRINGE 0 ML IV SCH (22:00)
[2018-04-25 22:24] LABS: Appearance Urine Cloudy (Clear); Color Urine Brown; Specific Gravity Urine 1.029 (1.000-1.060)
[2018-04-25 22:25] LABS: Protein Urine Negative (Negative)
[2018-04-25 22:28] LABS: Bacteria Urine 2+ (Negative); WBC Urine >30 /hpf (0-5)
[2018-04-26] MEDS: metroNIDAZOLE 500 MG/100 ML BAG IV SCH ×2 (03:46→12:17)
[2018-04-26] MEDS: AZTREONAM 1,000 MG in DEXTROSE 5% 100 ML IV SCH (05:44)
[2018-04-26 06:07] LABS: Basophils # (auto) 0.04 K/uL (0-0.2); Basophils % (auto) 0.2 %; Hematocrit (blood only) 40.4 % (37-47); Hemoglobin 13.1 g/dL (12.0-16.0); Immature Granulocytes # (auto) 0.16 K/uL (0.00-0.02); Immature Granulocytes % (auto) 0.8 %; Lymphocytes # (auto) 1.87 K/uL (1.2-3.4); Lymphocytes % (auto) 9.6 %; Mean Corpuscular Hgb Conc 32.4 g/dL (32-36); Mean Corpuscular Volume 80.3 fL (80-100); Mean Platelet Volume 10.9 fL (7.4-10.4); Monocytes # (auto) 0.96 K/uL (0.11-0.59); Monocytes % (auto) 4.9 %; Neutrophils # (auto) 16.39 K/uL (1.4-6.5); Neutrophils % (auto) 84.5 %; Platelet Count 197 K/uL (130-400); RDW Coefficient of Variation 20.6 % (11.5-14.5); RDW Standard Deviation 59.3 fL (36.4-46.3); Red Blood Count 5.03 M/uL (4.2-5.4); White Blood Count 19.42 K/uL (4.8-10.8)
[2018-04-26 06:34] LABS: Anisocytosis Present; Echinocytes 1+; Ovalocytes 1+
[2018-04-26 06:37] LABS: BUN Creatinine Ratio 15.9 (10-20); Calcium 7.1 mg/dl (8.5-10.1); Creatinine Clr Calc Pharmacy 12.4 ml/min; Est GFR (African American) 12.2; Est GFR (Non-African American) 10.5; Potassium 4.1 mmol/L (3.5-5.1)
[2018-04-26] MEDS: INSULIN ASPART 100 UNITS/ML 3 ML PEN SC SCH ×3 (07:43→18:49)
[2018-04-26] MEDS: INSULIN GLARGINE SOLOSTAR 100 UNITS/ML 3 ML PEN SC SCH (07:44)
[2018-04-26] MEDS: LACTATED RINGER'S 1,000 ML IV SCH (07:48)
--- NOTE | 2018-04-26 08:54 | Pharmacy Report ---
Glycemic Control Progress Note - Date of Service April 26, 2018 - Scope Glycemic Pharmacist consulted for glycemic control to write orders per [facility] inpatient glycemic control protocol. - Objective Accuchecks BSG(last 24 hours):: 04/25/18 04/25/18 04/25/18 11:24 16:25 20:41 Glucose POC Glucose 176 H 184 H 176 H 04/26/18 04/26/18 05:52 07:24 Glucose 219 H POC Glucose 196 H - Recent Pertinent Medications The patient is currently receiving: * Basal insulin: Lantus 18 units every 24 hours in the morning * Correctional Insulin: Novolog Correction per scale ACHS Goal Range: Low 120 mg/dL - High 150 mg/dL Correction Factor: 25 mg/dL/unit * Prandial insulin: Per carb ratio of 1 unit per 8 grams CHO consumed - Outpatient Anti-Diabetic Meds Lantus 23 units SQ plus Novolog scale - Assessment & Plan ASSESSMENT: * See progress note from 04/22/18 for more background info, in short: * Pt receiving SQ basal bolus insulin regimen for hyperglycemia secondary to baseline DM (outpatient regimen on hold),stress/infection (diverticulitis and pneumonia on 4 antibiotics), and significantly worsening kidney function. Patient may enter palliative care. * Patient is currently receiving an average of 23 units of insulin per day * 18 units of basal insulin * 5 units of prandial/correctional insulin * BSGs ranging 172 - 184 mg/dl over the past 24hrs * Changes needed to insulin regimen: * AM Fasting BSG = 196 mg/dl. This is slightly above goal range for patient based on inpatient targets and co-morbidities. Therefore Basal insulin will be increased based upon scale. The patient appears to have very little intake therefore all correctional insulin is from elevated blood sugars. Due to patient 's condition, okay with blood sugars around 180 mg/dL. Okay with increasing basal insulin slightly to prevent additional need of Novolog throughout the day. * Post-prandial BSGs are in range therefore no changes needed to CF/CR. * Total daily dose = ~20 units. Increase basal insulin as appropriate. * Additional notes / comments: PLAN FOR INPATIENT GLYCEMIC CONTROL: * Increasing Lantus to 10-20 units SQ qAM * Lantus 10 units if blood sugar less than 140 mg/dL * Lantus 18 units if blood sugar 140-180 mg/dL * Lantus 20 units if blood sugar greater than 180 mg/dL * Continuing correction factor of 25 mg/dl/unit * Continuing carb ratio of 1 unit per 8 grams CHO consumed * Continuing goal range of Low 120 mg/dL - High 150 mg/dL RECOMMENDATIONS FOR DISCHARGE: * Not determined yet - to be determined by patient's disposition. * Please note that the plan above was derived based on current level of insulin resistance and hospital stress. These recommendations are appropriate for inpatient admission only. Plan of care upon discharge will need to be reassessed to avoid potential outpatient hypo/hyperglycemia. Thank you.
[2018-04-26] MEDS ORDERED: SODIUM CHLORIDE 0.9% 1000ML 1,000 ML IV ONE (09:06)
--- NOTE | 2018-04-26 09:54 | Infectious Disease Consult ---
Date of Consultation April 26, 2018 Assessment & Plan (1) Diverticulitis large intestine: would suggest 10-14 days abx for diverticulitis. Can narrow. would suggest avoiding quinolones as patient is on amiodarone. would suggest changing to ertapenem only to complete course. urine culture pending. family to meet and establish goals of care today. History of Present Illness Attending Physician: Jhonny Anderson DO pt admitted from sn[facility] with increased abd pain. has h/o colon ca with mets, not a chemo candidate per chart. ct of abd in ER revealed known mass as well as sigmoid diveriticulitis and colo-vaginal fistula. wbc was initially 35, improved to 19 today. 04/25 UA >30 wbc, 2+ bacteria and budding yeast. She is currently on levaquin, dapto, flagyl and aztreonam. tolerating . creat elevated at 3.7. She had an isolated fever on 04/23 of 38.1 but is now afebrile. Blood cultures from admission negative to date. A urine culture from 04/25 pending. cxr done yesterday negative for infiltrate. pt is nonverbal and lethargic on my exam , unable to obtain ros. Family meeting to discuss goals of care and potential hospice scheduled for today. Allergies Allergy/AdvReac Type Severity Reaction Status Date / Time Penicillins Allergy Mild RASH Verified 04/21/18 23:45 VITOR Inhibitors Allergy Unknown HIVES Verified 04/21/18 23:45 Home Medications Home Medications Medication Instructions Recorded Confirmed Type aspirin [Aspir-81] 81 mg PO QAM 01/21/18 04/21/18 History furosemide [Lasix] 40 mg PO QAM 01/21/18 04/21/18 History spironolactone 50 mg PO DAILY 01/21/18 04/21/18 History apixaban [Eliquis] 5 mg PO BID #60 tab 04/09/18 04/21/18 Rx acetaminophen 650 mg PO Q6H PRN MDD 3gm/24hr 04/21/18 04/21/18 History baclofen 10 mg PO [facility] 04/21/18 04/21/18 History insulin aspart U-100 [Novolog 1 sliding scale dose SUBCUT [facility] 04/21/18 History PenFill U-100 Insulin] metoprolol tartrate 25 mg PO [facility] 04/21/18 04/21/18 History morphine concentrate 10 mg PO Q6H PRN 04/21/18 04/21/18 History mouthwashes 1 dose MUCOUS MEMBRANE AC 04/21/18 04/21/18 History [id number]-ND-lycopen-lutein 1 tab PO DAILY 04/21/18 04/21/18 History [Centrum Silver] omeprazole 40 mg PO DAILY 04/21/18 04/21/18 History Patient History Medical History History of breast cancer (Chronic) RIGHT. (+)RADIATION (2009) Hyperlipidemia (Chronic) Diabetes mellitus (Chronic) TYPE 2 IDDM HTN (hypertension) (Chronic) Cancer H/O BREAST CANCER 2009 CURRENT COLON CANCER WITH METS TO LIVER. Mitral regurgitation Mitral stenosis Chronic diastolic CHF (congestive heart failure) Esophageal dysmotility Aortic stenosis Paroxysmal atrial fibrillation Edema Colon cancer metastasized to liver Surgical History Hx of hysterectomy (Chronic) MAGALYS WITH BSO History of dilation and curettage (Chronic) Hx of cholecystectomy (Chronic) History of lumpectomy of right breast (Chronic) History of cataract surgery BILATERAL Encounter for care related to vascular access port access port placed 03/18/2018. fentanyl/propofol without issue. Family History Aunt Colon cancer Other No significant family history Social History marital status: Current Living Situation: Rehab Feels Safe at Home: Yes Safety Concerns: Feels Safe At This Time Smoking Status: Never smoker Tobacco Type: cigarettes Hx Alcohol Use: No Hx Substance Use: No Beliefs That Will Affect Care: None Preferred Language: Sinhala Astro Technician Required: No Review of Systems unable to obtain from patient, obtained from chart Physical Exam 2 Vital Signs (Past 24 Hours): Last Vital Signs Temp 36.6 C 04/26/18 07:45 Pulse 56 L 04/26/18 07:45 Resp 20 04/26/18 07:45 BP 77/52 L 04/26/18 07:45 Pulse Ox 98 04/26/18 07:45 Constitutional: comfortable and + lethargic ENMT: external ear and nose normal, oropharynx normal Neck: normal visual inspection Respiratory: normal respiratory effort, lungs clear to auscultation Auscultation: + diminished lung sounds Cardiovascular: RRR, no murmur, no edema Gastrointestinal (Abdomen): normal bowel sounds, soft, nontender, no hepatosplenomegaly Musculoskeletal: does not follow commands Skin: no rashes, warm and dry Psychiatric: lethargic, non verbal Results & Data Laboratory Results Microbiology 04/21/18 21:00 Blood Blood Culture - Preliminary No growth to date. 04/21/18 20:20 Blood Blood Culture - Preliminary No growth to date. _ (1) Diverticulitis large intestine Diverticulitis bleeding: without bleeding Diverticulitis complication: unspecified complication status Qualified Code(s): K57.32 - Diverticulitis of large intestine without perforation or abscess without bleeding
[2018-04-26] MEDS: AMIODARONE / D5W 360 MG/200 ML BAG IV SCH (10:00)
[2018-04-26] MEDS ORDERED: ERTAPENEM SODIUM 1,000 MG in SODIUM CHLORIDE 0.9% 50 ML IV SCH (13:30)
[2018-04-26] MEDS ORDERED: ERTAPENEM SODIUM 500 MG in SODIUM CHLORIDE 0.9% 50 ML IV SCH (14:00)
--- NOTE | 2018-04-26 14:09 | Family Medicine Progress Note ---
Date of Service April 26, 2018 Assessment & Plan (1) Goals of care, counseling/discussion: Comfort Care Only Patient resting comfortably. Family members cycling through to spend time with patient Conversation with family: Everyone on board and understanding of current plan. D/c all medications except pall care recommendations No issues at this time Will continue to monitor Other Medical Issues Esophageal dysmotility, pneumonia, diverticulitis will worsen without treatment. Patient will remain in hospital on comfort care as disease progresses. 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 Feeling okay overall, no new complaints. Family did not want discussions of goals of care now, noting they wanted to wait until palliative discussions this afternoon. After the palliative discussions, palliative care CRJuve Gunter informs me that the plan will be purely comfort measures only. Vitals noted, in general she is awake and alert no acute distress but does appear fatigued. Cardio is regular. Lungs are unlabored no accessory muscle use. Abdomen is soft but she does have lower abdominal tenderness without guarding rebound or rigidity. Diverticulitis, aspiration pneumonia, sepsis�initially we are continuing antibiotics and fluids, but after discussions with palliative she is to be purely comfort measures only. Chronic aspiration/dysphasia�comfort measures Metastatic colon cancer�comfort measures. Disposition she will be able to go to [facility], depending on how quickly she continues to decline she may be inpatient comfort care versus working towards home with hospice. Subjective Patient resting comfortably sleeping this morning. She roused briefly but fell back asleep. Patient's family not at bedside at this time. Family meeting with palliative care today and decision was made to stop all IV medications and give comfort measures only. Review of Systems Unobtainable due to reduced consciousness Physical Exam 2 Vital Signs (Past 24 Hours): Last Vital Signs Temp 36.5 C 04/26/18 11:21 Pulse 97 H 04/26/18 11:21 Resp 18 04/26/18 11:21 BP 82/63 L 04/26/18 11:21 Pulse Ox 98 04/26/18 11:21 Constitutional: + ill appearing, + well hydrated, + frail appearing and comfortable; no altered mental status Respiratory: normal respiratory effort, lungs clear to auscultation Cardiovascular: Rate/Rhythm: regular rate and regular rhythm Gastrointestinal (Abdomen): Percussion/Palpation: + abdomen tender (umbilical tenderness and llq tenderness), + guarding and abdomen soft; abdomen not rigid _ (1) Sepsis Sepsis type: sepsis due to unspecified organism Qualified Code(s): A41.9 - Sepsis, unspecified organism (2) Diverticulitis large intestine Diverticulitis bleeding: without bleeding Diverticulitis complication: unspecified complication status Qualified Code(s): K57.32 - Diverticulitis of large intestine without perforation or abscess without bleeding
[2018-04-26] MEDS: MoRPHine SULFATE 4 MG/ML 1 ML CARP\\VIAL IV PRN (14:45)
--- NOTE | 2018-04-26 14:55 | Palliative Care Progress Note ---
Date of Service April 26, 2018 Assessment & Plan (1) Goals of care, counseling/discussion: 83 year old female with PMH breast cancer, hyperlipidemia, diabetes, hypertension, colon cancer with metastasis to liver, mitral stenosis and mitral regurg, chronic diastolic congestive heart failure, aortic stenosis, esophageal dysmotility, paroxysmal A. fib, and others, presented with RLQ pain. Found to be diverticulitis, has colovaginal fistula, as well as non-sustained vtach. She is admitted to telemetry unit on IV amiodarone infusion. Patient is on IV aztreonam and flagyl as well. Patient has history of esophageal dysmotility that is worsening, she was evaluated by speech and is unable to swallow liquids at this point. -Patient has worsened over the weekend and is now not making any urine. CXR showed possible LLL pneumonia. Another abx was added in. Her WBCs continue to rise, more lethargic. -Family meeting held with patient's Adolfo, two daughters Ling and Isela, son Andrae. They verbalized understanding that patient is not recovering and would like to make her comfort measures only. -We talked about stopping IV amio, abx, lab draws, all active treatment. Family is in agreement to transition to [employer]. -Patient came from home with her elderly frail -- they are not able to take her home. Given epatient's rapid decline, not likely able to leave the hospital. Family did not want to talk about other discharge options at this time. -Recommend transferring to [facility]. Other recs: -Morphine 2mg IV Q1h PRN pain or SOB. -Atropine 1% oph soln 4 drops SL Q1h PRN secretions. -Lorazepam 1mg IV Q4h PRN agitaiton/anxiety. (2) Diverticulitis large intestine: -Managed by hospitalists. -IV aztreonam and flagyl. 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 (4) V tach: -Managed by hospitalist. -On amiodarone infusion. (5) Esophageal dysmotility: -Was evaluated by speech therapy. Patient is regurgitating even liquids at this point. -Patient has hx of Schatzki's ring. -Patient currently NPO until goals of care are certain. -If she does wish to comfort feed despite risk of aspiration, could try clear liquids. (6) Colon cancer metastasized to liver: Subjective Patient more drowsy and lethargic today. Does wake up and answers some questions appropriately. Full ROS not obtained due to patient condition. Does have mild pain in sacral area from being in bed. Physical Exam 2 Vital Signs (Past 24 Hours): Last Vital Signs Temp 36.5 C 04/26/18 11:21 Pulse 97 H 04/26/18 11:21 Resp 18 04/26/18 11:21 BP 82/63 L 04/26/18 11:21 Pulse Ox 98 04/26/18 11:21 Constitutional: + ill appearing and + overweight; no acute distress ENMT: Ears: no hearing impairment Neck: normal visual inspection and trachea midline Respiratory: normal respiratory effort, lungs clear to auscultation Auscultation: + diminished lung sounds Cardiovascular: Rate/Rhythm: regular rate; + abnormal rhythm Vessels: no JVD Extremities: + edema (generalized) Gastrointestinal (Abdomen): normal bowel sounds, soft, nontender, no hepatosplenomegaly Skin: + pallor Neurologic: awake (drowsy) Psychiatric: Orientation: oriented to person and oriented to place Time Spent Midlevel 65 minutes with >50% of time spent at bedside with patient and with family discussing condition, GOC, and comfort measures as well as collaborating with primary MD to discuss plan of care. _ (1) Diverticulitis large intestine Diverticulitis bleeding: without bleeding Diverticulitis complication: unspecified complication status Qualified Code(s): K57.32 - Diverticulitis of large intestine without perforation or abscess without bleeding
[2018-04-26] MEDS ORDERED: INSULIN ASPART 100 UNITS/ML 3 ML PEN SC SCH (17:07)
[2018-04-26] MEDS ORDERED: INSULIN GLARGINE SOLOSTAR 100 UNITS/ML 3 ML PEN SC SCH (17:07)
[2018-04-26] MEDS ORDERED: CARBOHYDRATES FOR HYPOGLYCEMIA PO PRN (18:04)
[2018-04-26] MEDS ORDERED: GLUCAGON FOR INJ 1 MG VIAL IM PRN (18:04)
[2018-04-26] MEDS ORDERED: GLUCOSE 40% GEL 15 GM TUBE PO PRN (18:04)
[2018-04-26] MEDS ORDERED: GLUCOSE 10 TABS/TUBE PO PRN (18:04)
[2018-04-26] MEDS ORDERED: DEXTROSE 50% 50 ML SYRINGE IV PRN (18:04)
[2018-04-27] MEDS ORDERED: LORazepam 1 MG/2 ML VIAL IV PRN (07:24)
[2018-04-27] MEDS ORDERED: ATROPINE SULFATE 1% OP SOLN 5 ML BTL SL SCH (07:30)
[2018-04-27] MEDS ORDERED: MICONAZOLE NITRATE POWDER 43 GM ONE (08:15)
[2018-04-27] MEDS ORDERED: ATROPINE SULFATE 1% OP SOLN 5 ML BTL SL PRN (08:29)
[2018-04-27] MEDS: MoRPHine SULFATE 4 MG/ML 1 ML CARP\\VIAL IV PRN ×2 (08:30→13:42)
[2018-04-27] MEDS ORDERED: MICONAZOLE NITRATE POWDER 43 GM EXT PRN (08:33)
[2018-04-27] MEDS ORDERED: HEPARIN 100 UNIT/ML 5ML FLUSH ONE (13:39)
[2018-04-27] MEDS ORDERED: HEPARIN 100 UNIT/ML 5ML FLUSH FLUSH PRN (13:50)
--- NOTE | 2018-04-27 15:20 | Family Medicine Progress Note ---
Date of Service April 27, 2018 Assessment & Plan (1) Goals of care, counseling/discussion: Comfort Care Only Patient resting comfortably. Family members cycling through to spend time with patient Conversation with family: Everyone on board and understanding of current plan. D/c'd all medications except pall care recommendations morphine q1h for pain atropine drops prn for secretions Ativan for anxiety No issues at this time Will continue to monitor Other Medical Issues Esophageal dysmotility, pneumonia, diverticulitis will worsen without treatment. Patient will remain in hospital on comfort care as disease progresses. 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 Appearing comfortable, no HPI or review of systems obtained. See above for further details. Family not present at the time that I see her. Vitals noted, in general she is sleeping in no distress. Breathing is unlabored she does not appear to be moaning writhing or otherwise appear uncomfortable. Metastatic colon cancer, severe dysphagia with aspiration Sepsis related to diverticulitis and aspiration pneumonia -She is comfort measures only and appears quite comfortable. Continue current care. Subjective Ms Brittney Thurman resting comfortbaly this morning. SHe had just received a dose of morphine and was coming in and out of sleep. She did indicate she was not having any discomfort at the moment then fell asleep. Review of systems were not obtained Physical Exam 2 Vital Signs (Past 24 Hours): Last Vital Signs Temp 36.4 C L 04/26/18 15:23 Pulse 104 H 04/26/18 15:23 Resp 10 L 04/26/18 15:23 BP 104/71 04/26/18 15:23 Pulse Ox 98 04/26/18 15:23 Constitutional: + altered mental status, + frail appearing and + lethargic; no acute distress and not in distress Respiratory: normal respiratory effort; no respiratory distress and no cough _ (1) Sepsis Sepsis type: sepsis due to unspecified organism Qualified Code(s): A41.9 - Sepsis, unspecified organism (2) Diverticulitis large intestine Diverticulitis bleeding: without bleeding Diverticulitis complication: unspecified complication status Qualified Code(s): K57.32 - Diverticulitis of large intestine without perforation or abscess without bleeding
--- NOTE | 2018-04-27 15:48 | Palliative Care Progress Note ---
Date of Service April 27, 2018 Assessment & Plan (1) Goals of care, counseling/discussion: -Patient converted to comfort measures only yesterday. -Today, patient more lethargic and obtunded. Family at bedside and deny questions/concerns. -Patient appears comfortable, family states she had some pain earlier but it is relieved with current medication. -Continue comfort care. Patient likely to in hours to days. 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 Family at bedside, deny questions/concerns. Patient appears comfortable. Review of Systems Unobtainable due to cognitive status Physical Exam 2 Vital Signs (Past 24 Hours): Last Vital Signs Temp 36.4 C L 04/26/18 15:23 Pulse 104 H 04/26/18 15:23 Resp 10 L 04/26/18 15:23 BP 104/71 04/26/18 15:23 Pulse Ox 98 04/26/18 15:23 Constitutional: + ill appearing and + overweight; no acute distress ENMT: Ears: no hearing impairment Neck: normal visual inspection and trachea midline Respiratory: normal respiratory effort, lungs clear to auscultation Auscultation: + diminished lung sounds Cardiovascular: RRR, no murmur, no edema Rate/Rhythm: regular rate; + abnormal rhythm Vessels: no JVD Extremities: + edema (generalized) Gastrointestinal (Abdomen): normal bowel sounds, soft, nontender, no hepatosplenomegaly Skin: + pallor Neurologic: + obtunded Time Spent Midlevel 25 minutes with >50% of time spent at bedside with patient and family discussing comfort measures and EOL issues. _ (1) Diverticulitis large intestine Diverticulitis bleeding: without bleeding Diverticulitis complication: unspecified complication status Qualified Code(s): K57.32 - Diverticulitis of large intestine without perforation or abscess without bleeding
[2018-04-28] MEDS: MoRPHine SULFATE 4 MG/ML 1 ML CARP\\VIAL IV PRN ×2 (05:59→16:21)
--- NOTE | 2018-04-28 14:31 | Palliative Care Progress Note ---
Date of Service April 28, 2018 Assessment & Plan (1) Goals of care, counseling/discussion: -Comfort measures only. -Today, mostly obtunded. Barely opened eyes, unable to make eye contact or follow commands. -Two daughters and son are at bedside. Patient's went home to rest, coming in soon. They deny questions/concerns. -Patient appears comfortable, family states she had some pain earlier but it is relieved with current medication. Continue morphine 2mg IV as needed. -Continue comfort care. Patient likely to in hours to days. 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 Barely opened eyes, quickly fell back asleep. Not following commands. Not verbally responding per family. Two daughters and a son at bedside. Physical Exam 2 Vital Signs (Past 24 Hours): Last Vital Signs Temp 36.4 C L 04/26/18 15:23 Pulse 104 H 04/26/18 15:23 Resp 10 L 04/26/18 15:23 BP 104/71 04/26/18 15:23 Pulse Ox 98 04/26/18 15:23 Constitutional: + ill appearing and + overweight; no acute distress ENMT: Ears: no hearing impairment Neck: normal visual inspection and trachea midline Respiratory: normal respiratory effort, lungs clear to auscultation Auscultation: + diminished lung sounds Cardiovascular: Rate/Rhythm: regular rate; + abnormal rhythm Vessels: no JVD Extremities: + edema (generalized) Gastrointestinal (Abdomen): normal bowel sounds, soft, nontender, no hepatosplenomegaly Skin: + pallor Neurologic: + obtunded Time Spent Midlevel 25 minutes with >50% of time spent at bedside with patient and family discussing comfort measures and EOL issues. _ (1) Diverticulitis large intestine Diverticulitis bleeding: without bleeding Diverticulitis complication: unspecified complication status Qualified Code(s): K57.32 - Diverticulitis of large intestine without perforation or abscess without bleeding
--- NOTE | 2018-04-28 19:26 | Family Medicine Progress Note ---
Date of Service April 28, 2018 Assessment & Plan (1) Goals of care, counseling/discussion: Comfort Care Only Patient resting comfortably. Family members cycling through to spend time with patient Conversation with family: Everyone on board and understanding of current plan. D/c'd all medications except pall care recommendations morphine q1h for pain atropine drops prn for secretions Ativan for anxiety No issues at this time Will continue to monitor Other Medical Issues Esophageal dysmotility, pneumonia, diverticulitis will worsen without treatment. Patient will remain in hospital on comfort care as disease progresses. 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 Appearing comfortable, no HPI or review of systems obtainable from pt. family present, no concerns. Vitals noted, in general she is sleeping in no distress. Breathing is unlabored she does not appear to be moaning writhing or otherwise appear uncomfortable. resting peacefully during the whole visit. A: Metastatic colon cancer, severe dysphagia with aspiration Sepsis related to diverticulitis and aspiration pneumonia P: She is comfort measures only and appears quite comfortable. Continue current care. empathy and support provided to family Subjective Ms. Thurman is resting comfotably asleep today. I spoke with her family who feel she is comfotable at this time. She is currently on comfort care and family is at bedside. Review of Systems Unobtainable due to reduced consciousness Physical Exam 2 Vital Signs (Past 24 Hours): Last Vital Signs Temp 36.4 C L 04/26/18 15:23 Pulse 104 H 04/26/18 15:23 Resp 10 L 04/26/18 15:23 BP 104/71 04/26/18 15:23 Pulse Ox 98 04/26/18 15:23 Constitutional: + ill appearing, comfortable and + lethargic _ (1) Diverticulitis large intestine Diverticulitis bleeding: without bleeding Diverticulitis complication: unspecified complication status Qualified Code(s): K57.32 - Diverticulitis of large intestine without perforation or abscess without bleeding (2) Sepsis Sepsis type: sepsis due to unspecified organism Qualified Code(s): A41.9 - Sepsis, unspecified organism
--- NOTE | 2018-04-29 09:11 | Discharge Summary ---
Date of Service April 28, 2018 Admission HPI Per Admitting Provider 83-year-old female presents as a transfer from [facility] for progressively worsening right lower quadrant abdominal pain throughout today (). She also noticed some nausea, vomiting of �a little bit� of blood, and ongoing mucousy bowel movements. She says the bowel movements have been like this since her hospital discharge on 21Dec. She says she had a fever over [facility] as well. Here in the ED, patient says that her abdominal pain is improved with pain medication. She denies any present chest pain, shortness of breath, acute urinary symptoms, or other acute concerns. Past medical history includes breast cancer, hyperlipidemia, diabetes, hypertension, colon cancer with metastasis to liver, mitral stenosis and mitral regurg, chronic diastolic congestive heart failure, aortic stenosis, esophageal dysmotility, paroxysmal A. fib, edema. Past surgical history includes total hysterectomy, cholecystectomy, breast lumpectomy, cataract surgery, port access placed. Social history includes living at home with spouse. Never smoked. Principal Diagnosis comfort care Discharge Data Allergies Allergy/AdvReac Type Severity Reaction Status Date / Time Penicillins Allergy Mild RASH Verified 04/21/18 23:45 VITOR Inhibitors Allergy Unknown HIVES Verified 04/21/18 23:45 Consultations 04/21/18 22:42 ED Decision to Admit Stat 04/22/18 18:02 Consult Palliative Care Routine Ordered Studies 04/21/18 21:07 CT abd pelvis wo con Stat 04/22/18 10:28 US venous doppler LE LT Stat Hospital Course (1) Goals of care, counseling/discussion: Please see progress note same date for all clinical details and relevant facts. Patient was in the hospital on comfort care and passed peacefully. Total Time Total Time Spent Total Time Spent (In Minutes): 0 Discharge Plan Discharge Items Disposition: Admission Data Admit Date/Time: 04/21/18 23:58 Attending Provider: Jhonny Anderson Admit Provider: Gaston Villegas Primary Care Provider: Silviano Richards III Other Providers: Baldomero French ; Bill Gil ; Radha Bolden Service: Medical Other [place] Date/Time DO NOT enter until pt leaves facility: 04/28/18 21:30
== END 2018-04-28 21:30 | disposition expired | DRG 871 ==
LOC: ED 19:45 → SUATTDRO 23:58 → 2S 23:58 → 4E 04-26 19:12
DX: Z85.3 Personal history of malignant neoplasm of breast; Z80.0 Family history of malignant neoplasm of digestive organs; K57.32 Diverticulitis of large intestine without perforation or abscess without bleeding; R65.20 Severe sepsis without septic shock; I10 Essential (primary) hypertension; E43 Unspecified severe protein-calorie malnutrition; R60.9 Edema, unspecified; Z51.5 Encounter for palliative care; K29.80 Duodenitis without bleeding; E78.5 Hyperlipidemia, unspecified; Z66 Do not resuscitate; A41.9 Sepsis, unspecified organism; K22.2 Esophageal obstruction; I50.32 Chronic diastolic (congestive) heart failure; I48.1 Persistent atrial fibrillation; N82.3 Fistula of vagina to large intestine; E87.6 Hypokalemia; I47.2 Ventricular tachycardia; E11.9 Type 2 diabetes mellitus without complications; D69.6 Thrombocytopenia, unspecified